=== PATIENT | male | born 1965 | race Caucasian/White ===

== ENCOUNTER 2016-09-10 20:32 | Inpatient (IN) | payer OTHER ==
[2016-09-10 21:14] VITALS: BMI 27.7
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
[2016-09-10] MEDS ORDERED: IBUPROFEN 400 MG TABLET (FP) PO PRN (22:34)
[2016-09-10] MEDS ORDERED: MAG HYDROX/AL HYDROX/SIMETH 30 ML UNIT-DOSE CUP PO PRN (22:34)
[2016-09-10] MEDS ORDERED: guaiFENesin/D-METHORPHAN HB 10 ML UNIT-DOSE CUPS PO PRN (22:34)
[2016-09-10] MEDS ORDERED: MAGNESIUM CITRATE 300 ML BOTTLE PO PRN (22:34)
[2016-09-10] MEDS ORDERED: P-EPHED 60MG/TRIPROLIDI 2.5MG TABLET PO PRN (22:34)
[2016-09-10] MEDS ORDERED: ACETAMINOPHEN 325 MG TABLET (FP) PO PRN (22:34)
[2016-09-10] MEDS ORDERED: diphenhydrAMINE HCL 50 MG CAPSULE PO PRN (22:34)
[2016-09-10] MEDS ORDERED: MENTHOL/PHENOL 1 EACH UD MM PRN (22:34)
[2016-09-10] MEDS ORDERED: chlordiazePOXIDE HCL 25 MG CAPSULE PO ONE (22:34)
[2016-09-10] MEDS ORDERED: LOPERAMIDE HCL 2 MG CAPSULE PO PRN (22:34)
[2016-09-10] MEDS ORDERED: MAGNESIUM HYDROX 2400MG/30ML ORAL SUSPENSION 30 ML CUP PO PRN (22:34)
[2016-09-11] MEDS: chlordiazePOXIDE HCL 25 MG CAPSULE PO SCH ×5 (00:38→22:40)
[2016-09-11 01:09] LABS: URINE APPEARANCE CLEAR; URINE BILIRUBIN NEGATIVE (NEGATIVE); URINE BLOOD NEGATIVE (NEGATIVE); URINE COLOR AMBER; URINE GLUCOSE (UA) NEGATIVE (NEGATIVE); URINE KETONE NEGATIVE (NEGATIVE); URINE LEUK ESTERASE NEGATIVE (NEGATIVE); URINE NITRITE NEGATIVE (NEGATIVE); URINE UROBILINOGEN 4.0 E.U/dl E.U./dl (0.2-1.0)
[2016-09-11 01:12] LABS: URINE PROTEIN 1+ (NEGATIVE)
[2016-09-11 01:14] LABS: URINE BACTERIA RARE /hpf (NONE SEEN); URINE MUCUS RARE; URINE RBC <1 /hpf (0-3)
[2016-09-11] MEDS: chlordiazePOXIDE HCL 25 MG CAPSULE PO PRN ×2 (07:34→14:37)
[2016-09-11] MEDS: hydrOXYzine PAMOATE 50 MG CAPSULE (FP) PO PRN ×2 (07:34→14:37)
[2016-09-11 10:43] LABS: MCHC 33.1 g/dl (32.0-35.9); MEAN CELL VOLUME 90.7 fl (80-96); MEAN PLT VOLUME 9.2 fl (7.5-11.1); PLATELET COUNT 58 K/MM3 (134-434); RDW 16.5 % (11.9-15.9); WHITE BLOOD COUNT 4.9 K/mm3 (4.0-10.0)
[2016-09-11] MEDS: PRENATAL VITAMINS W/ FOLIC ACID TABLET (FP) PO SCH (10:50)
[2016-09-11 10:54] LABS: ALBUMIN 3.2 g/dl (3.4-5.0); ANION GAP 13 (8-16); CALCIUM 8.3 mg/dL (8.5-10.1); CO2 28 mmol/L (21-32); GLUCOSE,RANDOM 87 mg/dL (74-106)
[2016-09-11 10:58] LABS: ALK PHOS 112 U/L (45-117); BILIRUBIN,TOTAL 1.1 mg/dL (0.2-1.0); CREATININE 0.5 mg/dL (0.7-1.3); SGOT/AST 126 U/L (15-37); SGPT/ALT 47 U/L (12-78); TOT PROT 7.7 g/dl (6.4-8.2)
[2016-09-11] MEDS ORDERED: INFLUENZA VACCINE 45 MCG/0.5 ML (MDV 16-17) IM ONE (12:00)
--- NOTE | 2016-09-11 12:16 | PN ---
[facility] CIWA - CIWA Score Nausea/Vomitin Muscle Tremors: 3 Anxiety: 3 Agitation: 2 Paroxysmal Sweats: 1-Minimal Palms Moist Orientation: 0-Oriented Tacttile Disturbances: 1-Very Mild Itch/Numbness Auditory Disturbances: 1-Very Mild Visual Disturbances: 1-Very Mild Sensitivity Headache: 2-Mild CIWA-Ar Total Score: 17 BHS Progress Note (SOAP) Subjective: ALERT,IRRITABLE,ANXIOUS,TREMOR,INTERRUPTED SLEEP Objective: 09/11/16 12:12 Vital Signs Temperature 98.6 F 09/11/16 10:02 Pulse Rate 76 09/11/16 10:02 Respiratory Rate 16 09/11/16 10:02 Blood Pressure 111/69 09/11/16 10:02 O2 Sat by Pulse Oximetry (%) EKG NSR 74/MIN NO CHEST PAIN,NO SOB,NO DIZZINESS Laboratory Last Values WBC 4.9 K/mm3 (4.0-10.0) D 09/11/16 08:00 RBC 4.33 M/mm3 (4.00-5.60) 09/11/16 08:00 Hgb 13.0 GM/dL (11.7-16.9) 09/11/16 08:00 Hct 39.3 % (35.4-49) 09/11/16 08:00 MCV 90.7 fl (80-96) 09/11/16 08:00 MCHC 33.1 g/dl (32.0-35.9) 09/11/16 08:00 RDW 16.5 % (11.9-15.9) H 09/11/16 08:00 Plt Count 58 K/MM3 (134-434) L D 09/11/16 08:00 MPV 9.2 fl (7.5-11.1) 09/11/16 08:00 Sodium 143 mmol/L (136-145) 09/11/16 08:00 Potassium 3.5 mmol/L (3.5-5.1) D 09/11/16 08:00 Chloride 102 mmol/L (98-107) 09/11/16 08:00 Carbon Dioxide 28 mmol/L (21-32) D 09/11/16 08:00 Anion Gap 13 (8-16) 09/11/16 08:00 BUN 12 mg/dL (7-18) D 09/11/16 08:00 Creatinine 0.5 mg/dL (0.7-1.3) L 09/11/16 08:00 Creat Clearance w eGFR > 60 (>60) 09/11/16 08:00 Random Glucose 87 mg/dL (74-106) D 09/11/16 08:00 Calcium 8.3 mg/dL (8.5-10.1) L 09/11/16 08:00 Total Bilirubin 1.1 mg/dL (0.2-1.0) H D 09/11/16 08:00 AST 126 U/L (15-37) H 09/11/16 08:00 ALT 47 U/L (12-78) D 09/11/16 08:00 Alkaline Phosphatase 112 U/L (45-117) D 09/11/16 08:00 Total Protein 7.7 g/dl (6.4-8.2) 09/11/16 08:00 Albumin 3.2 g/dl (3.4-5.0) L 09/11/16 08:00 Urine Color Eva 09/11/16 00:45 Urine Appearance Clear 09/11/16 00:45 Urine pH 7.0 (5.0-8.0) D 09/11/16 00:45 Ur Specific [place] 1.009 (1.001-1.035) 09/11/16 00:45 Urine Protein 1+ (NEGATIVE) H 09/11/16 00:45 Urine Glucose (UA) Negative (NEGATIVE) 09/11/16 00:45 Urine Ketones Negative (NEGATIVE) 09/11/16 00:45 Urine Blood Negative (NEGATIVE) 09/11/16 00:45 Urine Nitrite Negative (NEGATIVE) 09/11/16 00:45 Urine Bilirubin Negative (NEGATIVE) 09/11/16 00:45 Urine Urobilinogen 4.0 e.u/dl E.U./dl (0.2-1.0) 09/11/16 00:45 Ur Leukocyte Esterase Negative (NEGATIVE) 09/11/16 00:45 Urine RBC <1 /hpf (0-3) 09/11/16 00:45 Urine WBC None /hpf (3-5) 09/11/16 00:45 Urine Bacteria Rare /hpf (NONE SEEN) 09/11/16 00:45 Urine Mucus Rare 09/11/16 00:45 Assessment: 09/11/16 12:14 WITHDRAWAL SYMPTOM Plan: CONTINUE DETOX,AST 126,ALT 47,PLATELET COUNT 58K,HISTORY OF CIRRHOSIS OF LIVER, REPEAT CBC,ALT.AST ,INR IN AM,D/C TYLENOL
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
--- NOTE | 2016-09-11 18:25 | EKG ---
Test Reason : Blood Pressure : / mmHG Vent. Rate : 074 BPM Atrial Rate : 074 BPM P-R Int : 184 ms QRS Dur : 146 ms QT Int : 512 ms P-R-T Axes : 039 078 015 degrees QTc Int : 568 ms POOR DATA QUALITY, INTERPRETATION MAY BE ADVERSELY AFFECTED NORMAL SINUS RHYTHM PROLONGED QT ABNORMAL ECG WHEN COMPARED WITH ECG OF 01-APR-2009 22:46, QT HAS LENGTHENED Confirmed by ZIA LACY, DAVONTE ([id number]) on 09/11/2016 6:25:10 PM Referred By: Confirmed By:DAVONTE LIZARRAGA MD
[2016-09-11] MEDS ORDERED: TRIMETHOBENZAMIDE HCL 200MG/2ML INJ IM PRN (18:36)
--- NOTE | 2016-09-11 18:38 | PN ---
S Progress Note Note: PATIENT HAS VOMITING,TO GIVE TIGAN 200 MGS IM Q 8 HRS PRN,CLOSE MONITORING
[2016-09-11] MEDS ORDERED: cloNIDine HCL 0.1 MG TABLET ONE (21:43)
[2016-09-11] MEDS ORDERED: cloNIDine HCL 0.1 MG TABLET PO ONE (21:52)
[2016-09-11] MEDS: THIAMINE HCL 100 MG TABLET (FP) PO SCH (22:40)
[2016-09-12] MEDS: hydrOXYzine PAMOATE 50 MG CAPSULE (FP) PO PRN ×2 (02:25→10:42)
[2016-09-12] MEDS: chlordiazePOXIDE HCL 25 MG CAPSULE PO PRN (02:26)
[2016-09-12] MEDS: chlordiazePOXIDE HCL 25 MG CAPSULE PO SCH ×3 (05:50→17:46)
[2016-09-12 10:01] LABS: MCH 29.8 pg (25.7-33.7); MCHC 33.1 g/dl (32.0-35.9); MEAN PLT VOLUME 9.8 fl (7.5-11.1); PLATELET COUNT 47 K/MM3 (134-434); RDW 16.3 % (11.9-15.9)
[2016-09-12] MEDS: PRENATAL VITAMINS W/ FOLIC ACID TABLET (FP) PO SCH (10:41)
[2016-09-12 10:42] LABS: SGPT/ALT 46 U/L (12-78)
[2016-09-12] MEDS: ATENOLOL 50 MG TABLET (FP) PO SCH (10:42)
[2016-09-12 11:05] LABS: SGOT/AST 112 U/L (15-37)
--- NOTE | 2016-09-12 11:33 | PN ---
B[facility] Progress Note (SOAP) Subjective: ALERT,IRRITABLE,ANXIOUS,INTERRUPTED SLEEP Objective: 09/12/16 11:31 Vital Signs Temperature 98.6 F 09/12/16 10:41 Pulse Rate 96 H 09/12/16 10:41 Respiratory Rate 16 09/12/16 10:41 Blood Pressure 139/83 09/12/16 10:41 O2 Sat by Pulse Oximetry (%) Abnormal Lab Results 09/12/16 09/12/16 07:20 07:20 RDW 16.3 H Plt Count 47 L AST 112 H Assessment: 09/12/16 11:32 WITHDRAWAL SYMPTOM Plan: CONTINUE DETOX
[2016-09-12] MEDS: THIAMINE HCL 100 MG TABLET (FP) PO SCH (22:55)
[2016-09-12] MEDS: chlordiazePOXIDE 5 MG CAPSULE PO SCH (23:22)
[2016-09-13] MEDS: chlordiazePOXIDE 5 MG CAPSULE PO SCH ×3 (05:46→17:38)
[2016-09-13] MEDS: ATENOLOL 50 MG TABLET (FP) PO SCH (10:08)
[2016-09-13] MEDS: PRENATAL VITAMINS W/ FOLIC ACID TABLET (FP) PO SCH (10:08)
--- NOTE | 2016-09-13 11:03 | PN ---
S Progress Note (SOAP) Subjective: ALERT,IRRITABLE,ANXIOUS,PAIN ON URINATION Objective: 09/13/16 11:02 Vital Signs Temperature 97.3 F L 09/13/16 10:15 Pulse Rate 99 H 09/13/16 10:15 Respiratory Rate 18 09/13/16 10:15 Blood Pressure 112/73 09/13/16 10:15 O2 Sat by Pulse Oximetry (%) Assessment: 09/13/16 11:02 WITHDRAWAL SYMPTOM Plan: CONTINUE DETOX,REPEAT UA TODAY,DISCHARGE IN AM
[2016-09-13 14:19] LABS: URINE APPEARANCE CLOUDY; URINE COLOR AMBER; URINE GLUCOSE (UA) NEGATIVE (NEGATIVE); URINE KETONE NEGATIVE (NEGATIVE); URINE LEUK ESTERASE NEGATIVE (NEGATIVE); URINE NITRITE NEGATIVE (NEGATIVE); URINE UROBILINOGEN 2.0 E.U/dl E.U./dl (0.2-1.0)
[2016-09-13 14:20] LABS: URINE BLOOD 1+ (NEGATIVE); URINE PROTEIN 2+ (NEGATIVE)
[2016-09-13 14:28] LABS: URINE HYALINE CAST 132 /lpf; URINE MUCUS MANY; URINE RBC 3 /hpf (0-3); URINE WBC 7 /hpf (3-5)
[2016-09-13] MEDS: chlordiazePOXIDE HCL 10 MG CAPSULE PO SCH (22:24)
[2016-09-13] MEDS: THIAMINE HCL 100 MG TABLET (FP) PO SCH (22:24)
[2016-09-14] MEDS: chlordiazePOXIDE HCL 10 MG CAPSULE PO SCH (06:21)
[2016-09-14 06:47] VITALS: BP 109/70; PULSE 78; TEMP 98.4
--- NOTE | 2016-09-14 08:34 | PN ---
[facility] Progress Note (SOAP) Subjective: alert,no complaint Objective: 09/14/16 08:29 Vital Signs Temperature 98.4 F 09/14/16 06:46 Pulse Rate 78 09/14/16 06:46 Respiratory Rate 18 09/14/16 06:46 Blood Pressure 109/70 09/14/16 06:46 O2 Sat by Pulse Oximetry (%) 09/14/16 08:29 Abnormal Lab Results 09/13/16 11:20 Urine Protein 2+ H Urine Blood 1+ H 09/14/16 08:31 Laboratory Last Values WBC 4.0 K/mm3 (4.0-10.0) 09/12/16 07:20 RBC 4.61 M/mm3 (4.00-5.60) 09/12/16 07:20 Hgb 13.7 GM/dL (11.7-16.9) 09/12/16 07:20 Hct 41.5 % (35.4-49) 09/12/16 07:20 MCV 90.0 fl (80-96) 09/12/16 07:20 MCHC 33.1 g/dl (32.0-35.9) 09/12/16 07:20 RDW 16.3 % (11.9-15.9) H 09/12/16 07:20 Plt Count 47 K/MM3 (134-434) L 09/12/16 07:20 MPV 9.8 fl (7.5-11.1) 09/12/16 07:20 Sodium 143 mmol/L (136-145) 09/11/16 08:00 Potassium 3.5 mmol/L (3.5-5.1) D 09/11/16 08:00 Chloride 102 mmol/L (98-107) 09/11/16 08:00 Carbon Dioxide 28 mmol/L (21-32) D 09/11/16 08:00 Anion Gap 13 (8-16) 09/11/16 08:00 BUN 12 mg/dL (7-18) D 09/11/16 08:00 Creatinine 0.5 mg/dL (0.7-1.3) L 09/11/16 08:00 Creat Clearance w eGFR > 60 (>60) 09/11/16 08:00 POC Glucometer 96 UNITS (()) 09/12/16 16:39 Random Glucose 87 mg/dL (74-106) D 09/11/16 08:00 Calcium 8.3 mg/dL (8.5-10.1) L 09/11/16 08:00 Total Bilirubin 1.1 mg/dL (0.2-1.0) H D 09/11/16 08:00 AST 112 U/L (15-37) H 09/12/16 07:20 ALT 46 U/L (12-78) 09/12/16 07:20 Alkaline Phosphatase 112 U/L (45-117) D 09/11/16 08:00 Total Protein 7.7 g/dl (6.4-8.2) 09/11/16 08:00 Albumin 3.2 g/dl (3.4-5.0) L 09/11/16 08:00 Urine Color Eva 09/13/16 11:20 Urine Appearance Cloudy 09/13/16 11:20 Urine pH 5.0 (5.0-8.0) D 09/13/16 11:20 Ur Specific [place] 1.027 (1.001-1.035) 09/13/16 11:20 Urine Protein 2+ (NEGATIVE) H 09/13/16 11:20 Urine Glucose (UA) Negative (NEGATIVE) 09/13/16 11:20 Urine Ketones Negative (NEGATIVE) 09/13/16 11:20 Urine Blood 1+ (NEGATIVE) H 09/13/16 11:20 Urine Nitrite Negative (NEGATIVE) 09/13/16 11:20 Urine Bilirubin 2.0 (NEGATIVE) 09/13/16 11:20 Urine Urobilinogen 2.0 e.u/dl E.U./dl (0.2-1.0) 09/13/16 11:20 Ur Leukocyte Esterase Negative (NEGATIVE) 09/13/16 11:20 Urine RBC 3 /hpf (0-3) 09/13/16 11:20 Urine WBC 7 /hpf (3-5) 09/13/16 11:20 Ur Epithelial Cells Rare /hpf (FEW) 09/13/16 11:20 Urine Bacteria Rare /hpf (NONE SEEN) 09/11/16 00:45 Hyaline Casts 132 /lpf 09/13/16 11:20 Urine Mucus Many 09/13/16 11:20 RPR Titer Nonreactive (NONREACTIVE) 09/11/16 08:00 Assessment: 09/14/16 08:31 detox completed,no withdrawal symptom 09/14/16 08:32 discharge today,advise patient to see her pmd dr Baeza for evaluation upon discharge concerning abnormal urinalysis and elevation of ast 09/14/16 08:35 Plan: discharge,follow up with after care program as arrangement and pmd for medical problem
--- NOTE | 2016-09-14 08:43 | DS ---
[facility] Detox Discharge Summary Admission Date: 09/10/16 Discharge Date: 09/14/16 - History Present History: Alcohol Dependence Additional Comments: follow up with after care program as arrangement and pmd for medical problem,he will see his PMD dr Baeza upon discharge for elevation of ast,abnormal urinalysis with casts and trace of blood in the urine, he understand and will see his pmd upon discharge Pertinent Past History: cirrhosis of liver hypertension - Physical Exam Results Vital Signs: Vital Signs Temperature 98.4 F 09/14/16 06:46 Pulse Rate 78 09/14/16 06:46 Respiratory Rate 18 09/14/16 06:46 Blood Pressure 109/70 09/14/16 06:46 O2 Sat by Pulse Oximetry (%) Pertinent Admission Physical Exam Findings: withdrawal symptom - Treatment Hospital Course: Detox Protocol Followed, Detoxed Safely, Responded well, Discharged Condition Good Patient has Accepted a Rehab Referral to: declined - Medication Discharge Medications: Ambulatory Orders Atenolol [Tenormin -] 50 mg PO DAILY #30 tablet 05/20/15 Sulfacetamide Sodium 10% [Bleph-10 Ophthalmic Solution -] 1 drop OU QID #0 drops 05/20/15 Multivitamins 1 tab PO DAILY 09/11/16 - Diagnosis (1) Alcohol dependence with uncomplicated withdrawal Current Visit: Yes Status: Acute (2) Cirrhosis of liver Current Visit: Yes Status: Chronic Qualifiers: Hepatic cirrhosis type: alcoholic cirrhosis Ascites presence: without ascites Qualified Code(s): K70.30 - Alcoholic cirrhosis of liver without ascites (3) HTN (hypertension) Current Visit: Yes Status: Chronic Qualifiers: Hypertension type: essential hypertension Qualified Code(s): I10 - Essential (primary) hypertension (4) Peripheral neuropathy Current Visit: Yes Status: Chronic - AMA Did Patient Leave Against Medical Advice: No
== END 2016-09-14 09:12 | disposition home or self-care (01) | DRG 775 ==
LOC: YASAS 20:32 → Y6N 21:56
PROVIDERS: ADMIT Internal Medicine; ATTEND Internal Medicine
PROC: HZ2ZZZZ Detoxification Services for Substance Abuse Treatment (ICD-10-PCS; principal; 2016-09-14)
DX: F10.230 Alcohol dependence with withdrawal, uncomplicated (principal); K70.30 Alcoholic cirrhosis of liver without ascites; I10 Essential (primary) hypertension; G62.9 Polyneuropathy, unspecified; Z63.4 Disappearance and death of family member
CPT/HCPCS: 36415; 80053; 81003; 81015; 84450; 84460; 85027; 86593; 93005; 93010

== ENCOUNTER 2017-04-13 08:37 | Inpatient (IN) | payer OTHER ==
[2017-04-13 09:36] VITALS: BMI 26.3
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
[2017-04-13] MEDS ORDERED: P-EPHED 60MG/TRIPROLIDI 2.5MG TABLET PO PRN (11:58)
[2017-04-13] MEDS ORDERED: chlordiazePOXIDE HCL 25 MG CAPSULE PO PRN (11:58)
[2017-04-13] MEDS ORDERED: ACETAMINOPHEN 325 MG TABLET (FP) PO PRN (11:58)
[2017-04-13] MEDS ORDERED: hydrOXYzine PAMOATE 50 MG CAPSULE (FP) PO PRN (11:58)
[2017-04-13] MEDS ORDERED: MAGNESIUM CITRATE 300 ML BOTTLE PO PRN (11:58)
[2017-04-13] MEDS ORDERED: guaiFENesin/D-METHORPHAN HB 10 ML UNIT-DOSE CUPS PO PRN (11:58)
[2017-04-13] MEDS ORDERED: MAG HYDROX/AL HYDROX/SIMETH 30 ML UNIT-DOSE CUP PO PRN (11:58)
[2017-04-13] MEDS ORDERED: LOPERAMIDE HCL 2 MG CAPSULE PO PRN (11:58)
[2017-04-13] MEDS ORDERED: IBUPROFEN 400 MG TABLET (FP) PO PRN (11:58)
[2017-04-13] MEDS ORDERED: MAGNESIUM HYDROX 2400MG/30ML ORAL SUSPENSION 30 ML CUP PO PRN (11:58)
[2017-04-13] MEDS ORDERED: MENTHOL/PHENOL 1 EACH UD MM PRN (11:58)
[2017-04-13] MEDS ORDERED: chlordiazePOXIDE HCL 25 MG CAPSULE PO ONE (13:00)
[2017-04-13] MEDS: chlordiazePOXIDE HCL 25 MG CAPSULE PO SCH ×2 (17:00→22:18)
[2017-04-13] MEDS: ERYTHROMYCIN 0.5% OPHTHALMIC OINTMENT 3.5 GM TUBE OU SCH (17:00)
[2017-04-13 17:34] LABS: MCH 31.2 pg (25.7-33.7); MCHC 34.2 g/dl (32.0-35.9); MEAN CELL VOLUME 91.3 fl (80-96); MEAN PLT VOLUME 9.8 fl (7.5-11.1); RDW 15.8 % (11.9-15.9); WHITE BLOOD COUNT 4.3 K/mm3 (4.0-10.0)
[2017-04-13 17:36] LABS: PLATELET COUNT 77 K/MM3 (134-434)
[2017-04-13 17:41] LABS: URINE APPEARANCE CLEAR; URINE BILIRUBIN NEGATIVE (NEGATIVE); URINE BLOOD 1+ (NEGATIVE); URINE COLOR AMBER; URINE GLUCOSE (UA) NEGATIVE (NEGATIVE); URINE KETONE 1+ (NEGATIVE); URINE LEUK ESTERASE NEGATIVE (NEGATIVE); URINE NITRITE NEGATIVE (NEGATIVE); URINE UROBILINOGEN 4.0 E.U/dl mg/dL (0.2-1.0)
[2017-04-13 17:44] LABS: URINE PROTEIN 2+ (NEGATIVE)
[2017-04-13 17:47] LABS: URINE HYALINE CAST 4 /lpf; URINE MUCUS MANY; URINE RBC 2 /hpf (0-3); URINE WBC 1 /hpf (3-5)
[2017-04-13 18:58] LABS: ALBUMIN 4.1 g/dl (3.4-5.0); ANION GAP 12 (8-16); CALCIUM 8.6 mg/dL (8.5-10.1); CO2 32 mmol/L (21-32); GLUCOSE,RANDOM 90 mg/dL (74-106); SGOT/AST 86 U/L (15-37); SGPT/ALT 47 U/L (12-78)
[2017-04-13 19:01] LABS: ALK PHOS 93 U/L (45-117); BILIRUBIN,TOTAL 1.6 mg/dL (0.2-1.0); CREATININE 0.6 mg/dL (0.7-1.3); TOT PROT 8.3 g/dl (6.4-8.2)
[2017-04-13] MEDS: diphenhydrAMINE HCL 50 MG CAPSULE PO PRN (22:18)
[2017-04-13] MEDS: THIAMINE HCL 100 MG TABLET (FP) PO SCH (22:18)
[2017-04-14] MEDS: chlordiazePOXIDE HCL 25 MG CAPSULE PO SCH ×4 (05:31→22:16)
[2017-04-14] MEDS: PRENATAL VITAMINS W/ FOLIC ACID TABLET (FP) PO SCH (10:51)
[2017-04-14] MEDS: ERYTHROMYCIN 0.5% OPHTHALMIC OINTMENT 3.5 GM TUBE OU SCH (10:51)
[2017-04-14] MEDS: ATENOLOL 50 MG TABLET (FP) PO SCH (11:49)
--- NOTE | 2017-04-14 12:30 | EKG ---
Test Reason : Blood Pressure : / mmHG Vent. Rate : 073 BPM Atrial Rate : 073 BPM P-R Int : 152 ms QRS Dur : 082 ms QT Int : 454 ms P-R-T Axes : 042 079 042 degrees QTc Int : 500 ms NORMAL SINUS RHYTHM PROLONGED QT ABNORMAL ECG WHEN COMPARED WITH ECG OF 11-SEP-2016 00:58, NON-SPECIFIC CHANGE IN ST SEGMENT IN ANTERIOR LEADS T WAVE INVERSION NO LONGER EVIDENT IN ANTERIOR LEADS QT HAS SHORTENED Confirmed by DELVIS CHARLES MD ([id number]) on 04/14/2017 12:30:08 PM Referred By: Fam Tipton Confirmed By:DELVIS CHARLES MD
--- NOTE | 2017-04-14 12:58 | PN ---
S CIWA - CIWA Score Nausea/Vomitin-No Nausea/No Vomiting Muscle Tremors: 4-Moderate,w/Arms Extend Anxiety: 3 Agitation: 4-Moderately Restless Paroxysmal Sweats: 3 Orientation: 0-Oriented Tacttile Disturbances: 0-None Auditory Disturbances: 0-None Visual Disturbances: 0-None Headache: 0-None Present CIWA-Ar Total Score: 14 BHS Progress Note (SOAP) Subjective: sweats shakes interrupted sleep body aches Objective: 04/14/17 12:57 Vital Signs Temperature 98.2 F 04/14/17 10:04 Pulse Rate 86 04/14/17 10:04 Respiratory Rate 18 04/14/17 10:04 Blood Pressure 126/86 04/14/17 10:04 O2 Sat by Pulse Oximetry (%) Laboratory Tests 04/13/17 04/13/17 04/13/17 12:00 13:00 13:00 WBC 4.3 RBC 4.40 Hgb 13.7 Hct 40.1 MCV 91.3 MCH 31.2 MCHC 34.2 RDW 15.8 Plt Count 77 L D MPV 9.8 Sodium 142 Potassium 3.9 Chloride 98 Carbon Dioxide 32 Anion Gap 12 BUN 12 Creatinine 0.6 L Creat Clearance w eGFR > 60 Random Glucose 90 Calcium 8.6 Total Bilirubin 1.6 H D AST 86 H D ALT 47 Alkaline Phosphatase 93 Total Protein 8.3 H Albumin 4.1 D Urine Color Eva Urine Appearance Clear Urine pH 6.0 Ur Specific [place] 1.025 Urine Protein 2+ H Urine Glucose (UA) Negative Urine Ketones 1+ H Urine Blood 1+ H Urine Nitrite Negative Urine Bilirubin Negative Urine Urobilinogen 4.0 e.u/dl Ur Leukocyte Esterase Negative Urine RBC 2 Urine WBC 1 Ur Epithelial Cells Rare Hyaline Casts 4 Urine Mucus Many RPR Titer 04/13/17 13:00 WBC RBC Hgb Hct MCV MCH MCHC RDW Plt Count MPV Sodium Potassium Chloride Carbon Dioxide Anion Gap BUN Creatinine Creat Clearance w eGFR Random Glucose Calcium Total Bilirubin AST ALT Alkaline Phosphatase Total Protein Albumin Urine Color Urine Appearance Urine pH Ur Specific [place] Urine Protein Urine Glucose (UA) Urine Ketones Urine Blood Urine Nitrite Urine Bilirubin Urine Urobilinogen Ur Leukocyte Esterase Urine RBC Urine WBC Ur Epithelial Cells Hyaline Casts Urine Mucus RPR Titer Nonreactive repeated u/a pending AAOx3 no acute distress Assessment: 04/14/17 12:58 withdrawal sx Plan: continue detox increase fluids
[2017-04-14] MEDS: THIAMINE HCL 100 MG TABLET (FP) PO SCH (22:16)
[2017-04-14] MEDS: diphenhydrAMINE HCL 50 MG CAPSULE PO PRN (22:17)
[2017-04-15] MEDS: chlordiazePOXIDE HCL 25 MG CAPSULE PO SCH ×2 (06:02→11:15)
--- NOTE | 2017-04-15 10:37 | PN ---
S CIWA - CIWA Score Nausea/Vomitin Muscle Tremors: 3 Anxiety: 3 Agitation: 2 Paroxysmal Sweats: 1-Minimal Palms Moist Orientation: 0-Oriented Tacttile Disturbances: 1-Very Mild Itch/Numbness Auditory Disturbances: 1-Very Mild Visual Disturbances: 0-None Headache: 2-Mild CIWA-Ar Total Score: 16 BHS Progress Note (SOAP) Subjective: ALERT,IRRITABLE,ANXIOUS,INTERRUPTED SLEEP,TREMOR Objective: 04/15/17 10:35 04/15/17 10:35 Vital Signs Temperature 97.2 F L 04/15/17 09:58 Pulse Rate 88 04/15/17 09:58 Respiratory Rate 18 04/15/17 09:58 Blood Pressure 132/96 04/15/17 09:58 O2 Sat by Pulse Oximetry (%) Laboratory Last Values WBC 4.3 K/mm3 (4.0-10.0) 04/13/17 13:00 RBC 4.40 M/mm3 (4.00-5.60) 04/13/17 13:00 Hgb 13.7 GM/dL (11.7-16.9) 04/13/17 13:00 Hct 40.1 % (35.4-49) 04/13/17 13:00 MCV 91.3 fl (80-96) 04/13/17 13:00 MCH 31.2 pg (25.7-33.7) 04/13/17 13:00 MCHC 34.2 g/dl (32.0-35.9) 04/13/17 13:00 RDW 15.8 % (11.9-15.9) 04/13/17 13:00 Plt Count 77 K/MM3 (134-434) L D 04/13/17 13:00 MPV 9.8 fl (7.5-11.1) 04/13/17 13:00 Sodium 142 mmol/L (136-145) 04/13/17 13:00 Potassium 3.9 mmol/L (3.5-5.1) 04/13/17 13:00 Chloride 98 mmol/L (98-107) 04/13/17 13:00 Carbon Dioxide 32 mmol/L (21-32) 04/13/17 13:00 Anion Gap 12 (8-16) 04/13/17 13:00 BUN 12 mg/dL (7-18) 04/13/17 13:00 Creatinine 0.6 mg/dL (0.7-1.3) L 04/13/17 13:00 Creat Clearance w eGFR > 60 (>60) 04/13/17 13:00 Random Glucose 90 mg/dL (74-106) 04/13/17 13:00 Calcium 8.6 mg/dL (8.5-10.1) 04/13/17 13:00 Total Bilirubin 1.6 mg/dL (0.2-1.0) H D 04/13/17 13:00 AST 86 U/L (15-37) H D 04/13/17 13:00 ALT 47 U/L (12-78) 04/13/17 13:00 Alkaline Phosphatase 93 U/L (45-117) 04/13/17 13:00 Total Protein 8.3 g/dl (6.4-8.2) H 04/13/17 13:00 Albumin 4.1 g/dl (3.4-5.0) D 04/13/17 13:00 Urine Color Eva 04/13/17 12:00 Urine Appearance Clear 04/13/17 12:00 Urine pH 6.0 (5.0-8.0) 04/13/17 12:00 Ur Specific [place] 1.025 (1.005-1.025) 04/13/17 12:00 Urine Protein 2+ (NEGATIVE) H 04/13/17 12:00 Urine Glucose (UA) Negative (NEGATIVE) 04/13/17 12:00 Urine Ketones 1+ (NEGATIVE) H 04/13/17 12:00 Urine Blood 1+ (NEGATIVE) H 04/13/17 12:00 Urine Nitrite Negative (NEGATIVE) 04/13/17 12:00 Urine Bilirubin Negative (NEGATIVE) 04/13/17 12:00 Urine Urobilinogen 4.0 e.u/dl mg/dL (0.2-1.0) 04/13/17 12:00 Ur Leukocyte Esterase Negative (NEGATIVE) 04/13/17 12:00 Urine RBC 2 /hpf (0-3) 04/13/17 12:00 Urine WBC 1 /hpf (3-5) 04/13/17 12:00 Ur Epithelial Cells Rare /hpf (FEW) 04/13/17 12:00 Hyaline Casts 4 /lpf 04/13/17 12:00 Urine Mucus Many 04/13/17 12:00 RPR Titer Nonreactive (NONREACTIVE) 04/13/17 13:00 Assessment: 04/15/17 10:36 WITHDRAWAL SYMPTOM Plan: CONTINUE DETOX,REPEAT CBC,CMP,INR IN AM
[2017-04-15] MEDS: PRENATAL VITAMINS W/ FOLIC ACID TABLET (FP) PO SCH (11:15)
[2017-04-15] MEDS: ATENOLOL 50 MG TABLET (FP) PO SCH (11:15)
[2017-04-15] MEDS: ERYTHROMYCIN 0.5% OPHTHALMIC OINTMENT 3.5 GM TUBE OU SCH (11:15)
[2017-04-15] MEDS: RANITIDINE HCL 150 MG TABLET (FP) PO SCH ×2 (12:27→22:10)
[2017-04-15 13:37] LABS: URINE APPEARANCE CLEAR; URINE BILIRUBIN NEGATIVE (NEGATIVE); URINE BLOOD NEGATIVE (NEGATIVE); URINE COLOR AMBER; URINE GLUCOSE (UA) NEGATIVE (NEGATIVE); URINE KETONE TRACE (NEGATIVE); URINE LEUK ESTERASE NEGATIVE (NEGATIVE); URINE NITRITE NEGATIVE (NEGATIVE); URINE PROTEIN 1+ (NEGATIVE); URINE UROBILINOGEN 4.0 E.U/dl mg/dL (0.2-1.0)
[2017-04-15 13:40] LABS: URINE MUCUS RARE; URINE RBC 6 /hpf (0-3); URINE WBC <1 /hpf (3-5)
[2017-04-15] MEDS: chlordiazePOXIDE 5 MG CAPSULE PO SCH ×2 (17:30→22:10)
[2017-04-15] MEDS: diphenhydrAMINE HCL 50 MG CAPSULE PO PRN (22:11)
[2017-04-15] MEDS: THIAMINE HCL 100 MG TABLET (FP) PO SCH (22:11)
[2017-04-16] MEDS: diphenhydrAMINE HCL 50 MG CAPSULE PO PRN (00:26)
[2017-04-16] MEDS: chlordiazePOXIDE 5 MG CAPSULE PO SCH ×2 (05:31→10:41)
[2017-04-16] MEDS: RANITIDINE HCL 150 MG TABLET (FP) PO SCH (10:41)
[2017-04-16] MEDS: PRENATAL VITAMINS W/ FOLIC ACID TABLET (FP) PO SCH (10:41)
[2017-04-16] MEDS: ATENOLOL 50 MG TABLET (FP) PO SCH (10:41)
[2017-04-16] MEDS: ERYTHROMYCIN 0.5% OPHTHALMIC OINTMENT 3.5 GM TUBE OU SCH (10:42)
[2017-04-16 11:02] LABS: BASOPHIL 0.8 % (0-2.0); EOSINOPHIL 2.3 % (0-4.5); MCH 30.4 pg (25.7-33.7); MCHC 33.1 g/dl (32.0-35.9); MEAN CELL VOLUME 91.6 fl (80-96); MEAN PLT VOLUME 9.6 fl (7.5-11.1); NEUTROPHILS 50.9 % (42.8-82.8); PLATELET COUNT 65 K/MM3 (134-434); RDW 15.6 % (11.9-15.9); WHITE BLOOD COUNT 6.3 K/mm3 (4.0-10.0)
[2017-04-16 11:04] LABS: ANION GAP 12 (8-16); CO2 27 mmol/L (21-32); CREATININE 0.8 mg/dL (0.7-1.3); GLUCOSE,RANDOM 123 mg/dL (74-106); SGOT/AST 67 U/L (15-37)
[2017-04-16 11:07] LABS: ALK PHOS 153 U/L (45-117); BILIRUBIN,TOTAL 2.6 mg/dL (0.2-1.0); SGPT/ALT 47 U/L (12-78); TOT PROT 8.5 g/dl (6.4-8.2)
[2017-04-16 11:16] LABS: INR 1.43 (0.82-1.09); PROTHROMBIN TIME (PATIENT) 15.9 SEC (9.98-11.88)
--- NOTE | 2017-04-16 11:19 | PN ---
BHS Progress Note (SOAP) Subjective: Mild shakes and sweats Objective: 04/16/17 11:18 Vital Signs - 8 hr 04/16/17 04/16/17 06:41 10:00 Temperature 97.3 F L 98.4 F Pulse Rate 78 90 Respiratory 18 18 Rate Blood Pressure 123/71 117/84 Laboratory Last Values WBC 6.3 K/mm3 (4.0-10.0) D 04/16/17 07:50 RBC 4.77 M/mm3 (4.00-5.60) 04/16/17 07:50 Hgb 14.5 GM/dL (11.7-16.9) 04/16/17 07:50 Hct 43.7 % (35.4-49) 04/16/17 07:50 MCV 91.6 fl (80-96) 04/16/17 07:50 MCH 30.4 pg (25.7-33.7) 04/16/17 07:50 MCHC 33.1 g/dl (32.0-35.9) 04/16/17 07:50 RDW 15.6 % (11.9-15.9) 04/16/17 07:50 Plt Count 65 K/MM3 (134-434) L 04/16/17 07:50 MPV 9.6 fl (7.5-11.1) 04/16/17 07:50 Neutrophils % 50.9 % (42.8-82.8) D 04/16/17 07:50 Lymphocytes % 30.8 % (8-40) D 04/16/17 07:50 Monocytes % 15.2 % (3.8-10.2) H 04/16/17 07:50 Eosinophils % 2.3 % (0-4.5) 04/16/17 07:50 Basophils % 0.8 % (0-2.0) 04/16/17 07:50 Sodium 139 mmol/L (136-145) 04/16/17 07:50 Potassium 3.7 mmol/L (3.5-5.1) 04/16/17 07:50 Chloride 100 mmol/L (98-107) 04/16/17 07:50 Carbon Dioxide 27 mmol/L (21-32) 04/16/17 07:50 Anion Gap 12 (8-16) 04/16/17 07:50 BUN 16 mg/dL (7-18) D 04/16/17 07:50 Creatinine 0.8 mg/dL (0.7-1.3) D 04/16/17 07:50 Creat Clearance w eGFR > 60 (>60) 04/16/17 07:50 Random Glucose 123 mg/dL (74-106) H D 04/16/17 07:50 Calcium 10.0 mg/dL (8.5-10.1) 04/16/17 07:50 Total Bilirubin 2.6 mg/dL (0.2-1.0) H D 04/16/17 07:50 AST 67 U/L (15-37) H D 04/16/17 07:50 ALT 47 U/L (12-78) 04/16/17 07:50 Alkaline Phosphatase 153 U/L (45-117) H D 04/16/17 07:50 Total Protein 8.5 g/dl (6.4-8.2) H 04/16/17 07:50 Albumin 4.0 g/dl (3.4-5.0) 04/16/17 07:50 Urine Color Eva 04/15/17 10:20 Urine Appearance Clear 04/15/17 10:20 Urine pH 7.0 (5.0-8.0) 04/15/17 10:20 Ur Specific [place] 1.015 (1.005-1.025) 04/15/17 10:20 Urine Protein 1+ (NEGATIVE) H 04/15/17 10:20 Urine Glucose (UA) Negative (NEGATIVE) 04/15/17 10:20 Urine Ketones Trace (NEGATIVE) H 04/15/17 10:20 Urine Blood Negative (NEGATIVE) 04/15/17 10:20 Urine Nitrite Negative (NEGATIVE) 04/15/17 10:20 Urine Bilirubin Negative (NEGATIVE) 04/15/17 10:20 Urine Urobilinogen 4.0 e.u/dl mg/dL (0.2-1.0) 04/15/17 10:20 Ur Leukocyte Esterase Negative (NEGATIVE) 04/15/17 10:20 Urine RBC 6 /hpf (0-3) 04/15/17 10:20 Urine WBC <1 /hpf (3-5) 04/15/17 10:20 Ur Epithelial Cells Rare /hpf (FEW) 04/13/17 12:00 Hyaline Casts 4 /lpf 04/13/17 12:00 Urine Mucus Rare 04/15/17 10:20 RPR Titer Nonreactive (NONREACTIVE) 04/13/17 13:00 labs noted Assessment: 04/16/17 11:18 withdrawal sx Plan: continue detox
[2017-04-16 14:41] VITALS: BP 114/74; PULSE 98; TEMP 97.7
[2017-04-16] MEDS ORDERED: chlordiazePOXIDE HCL 10 MG CAPSULE PO SCH (17:00)
--- NOTE | 2017-04-16 19:47 | DS ---
[facility] Detox Discharge Summary Admission Date: 04/13/17 Discharge Date: 04/16/17 - History Present History: Alcohol Dependence Pertinent Past History: GERD, peripheral neuropathy, cirrhosis of the liver, HTN - Physical Exam Results Vital Signs: Vital Signs Temperature 97.7 F 04/16/17 14:40 Pulse Rate 98 H 04/16/17 14:40 Respiratory Rate 16 04/16/17 14:40 Blood Pressure 114/74 04/16/17 14:40 O2 Sat by Pulse Oximetry (%) Pertinent Admission Physical Exam Findings: withdrawal sx Laboratory Last Values WBC 6.3 K/mm3 (4.0-10.0) D 04/16/17 07:50 RBC 4.77 M/mm3 (4.00-5.60) 04/16/17 07:50 Hgb 14.5 GM/dL (11.7-16.9) 04/16/17 07:50 Hct 43.7 % (35.4-49) 04/16/17 07:50 MCV 91.6 fl (80-96) 04/16/17 07:50 MCH 30.4 pg (25.7-33.7) 04/16/17 07:50 MCHC 33.1 g/dl (32.0-35.9) 04/16/17 07:50 RDW 15.6 % (11.9-15.9) 04/16/17 07:50 Plt Count 65 K/MM3 (134-434) L 04/16/17 07:50 MPV 9.6 fl (7.5-11.1) 04/16/17 07:50 Neutrophils % 50.9 % (42.8-82.8) D 04/16/17 07:50 Lymphocytes % 30.8 % (8-40) D 04/16/17 07:50 Monocytes % 15.2 % (3.8-10.2) H 04/16/17 07:50 Eosinophils % 2.3 % (0-4.5) 04/16/17 07:50 Basophils % 0.8 % (0-2.0) 04/16/17 07:50 INR 1.43 (0.82-1.09) H 04/16/17 07:50 Sodium 139 mmol/L (136-145) 04/16/17 07:50 Potassium 3.7 mmol/L (3.5-5.1) 04/16/17 07:50 Chloride 100 mmol/L (98-107) 04/16/17 07:50 Carbon Dioxide 27 mmol/L (21-32) 04/16/17 07:50 Anion Gap 12 (8-16) 04/16/17 07:50 BUN 16 mg/dL (7-18) D 04/16/17 07:50 Creatinine 0.8 mg/dL (0.7-1.3) D 04/16/17 07:50 Creat Clearance w eGFR > 60 (>60) 04/16/17 07:50 Random Glucose 123 mg/dL (74-106) H D 04/16/17 07:50 Calcium 10.0 mg/dL (8.5-10.1) 04/16/17 07:50 Total Bilirubin 2.6 mg/dL (0.2-1.0) H D 04/16/17 07:50 AST 67 U/L (15-37) H D 04/16/17 07:50 ALT 47 U/L (12-78) 04/16/17 07:50 Alkaline Phosphatase 153 U/L (45-117) H D 04/16/17 07:50 Total Protein 8.5 g/dl (6.4-8.2) H 04/16/17 07:50 Albumin 4.0 g/dl (3.4-5.0) 04/16/17 07:50 Urine Color Eva 04/15/17 10:20 Urine Appearance Clear 04/15/17 10:20 Urine pH 7.0 (5.0-8.0) 04/15/17 10:20 Ur Specific [place] 1.015 (1.005-1.025) 04/15/17 10:20 Urine Protein 1+ (NEGATIVE) H 04/15/17 10:20 Urine Glucose (UA) Negative (NEGATIVE) 04/15/17 10:20 Urine Ketones Trace (NEGATIVE) H 04/15/17 10:20 Urine Blood Negative (NEGATIVE) 04/15/17 10:20 Urine Nitrite Negative (NEGATIVE) 04/15/17 10:20 Urine Bilirubin Negative (NEGATIVE) 04/15/17 10:20 Urine Urobilinogen 4.0 e.u/dl mg/dL (0.2-1.0) 04/15/17 10:20 Ur Leukocyte Esterase Negative (NEGATIVE) 04/15/17 10:20 Urine RBC 6 /hpf (0-3) 04/15/17 10:20 Urine WBC <1 /hpf (3-5) 04/15/17 10:20 Ur Epithelial Cells Rare /hpf (FEW) 04/13/17 12:00 Hyaline Casts 4 /lpf 04/13/17 12:00 Urine Mucus Rare 04/15/17 10:20 RPR Titer Nonreactive (NONREACTIVE) 04/13/17 13:00 labs noted - Medication Discharge Medications: Ambulatory Orders Atenolol [Tenormin -] 50 mg PO DAILY 04/13/17 Multivitamins [Tab-A-Vit -] 1 tab PO DAILY 04/13/17 - Diagnosis (1) Alcohol dependence with uncomplicated withdrawal Status: Acute (2) GERD (gastroesophageal reflux disease) Status: Chronic Qualifiers: Esophagitis presence: without esophagitis Qualified Code(s): K21.9 - Gastro-esophageal reflux disease without esophagitis (3) HTN (hypertension) Status: Chronic Qualifiers: Hypertension type: essential hypertension Qualified Code(s): I10 - Essential (primary) hypertension (4) Peripheral neuropathy Status: Chronic Qualifiers: Peripheral neuropathy type: polyneuropathy, unspecified Qualified Code(s): G62.9 - Polyneuropathy, unspecified (5) Delusional disorder Status: Suspected - AMA Did Patient Leave Against Medical Advice: Yes
== END 2017-04-16 16:10 | disposition left against medical advice (07) | DRG 770 ==
LOC: YASAS 08:37 → Y6N 11:53
PROVIDERS: ADMIT Internal Medicine Addiction Medicine; ATTEND Internal Medicine Addiction Medicine
PROC: HZ2ZZZZ Detoxification Services for Substance Abuse Treatment (ICD-10-PCS; principal; 2017-04-13)
DX: F10.230 Alcohol dependence with withdrawal, uncomplicated (principal); F22 Delusional disorders; K21.9 Gastro-esophageal reflux disease without esophagitis; I10 Essential (primary) hypertension; G62.9 Polyneuropathy, unspecified; K74.60 Unspecified cirrhosis of liver; H44.003 Unspecified purulent endophthalmitis, bilateral; Z91.041 Radiographic dye allergy status; Z87.891 Personal history of nicotine dependence
CPT/HCPCS: 36415; 80053; 81003; 81015; 85025; 85027; 85610; 86593; 93005; 93010

== ENCOUNTER 2017-09-05 08:27 | Inpatient (IN) | payer OTHER ==
[2017-09-05 13:40] VITALS: BMI 27.4
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
[2017-09-05] MEDS ORDERED: MENTHOL/PHENOL 1 EACH UD MM PRN (14:00)
[2017-09-05] MEDS ORDERED: MAGNESIUM HYDROX 2400MG/30ML ORAL SUSPENSION 30 ML CUP PO PRN (14:00)
[2017-09-05] MEDS ORDERED: LOPERAMIDE HCL 2 MG CAPSULE PO PRN (14:00)
[2017-09-05] MEDS ORDERED: IBUPROFEN 400 MG TABLET (FP) PO PRN (14:00)
[2017-09-05] MEDS ORDERED: guaiFENesin/D-METHORPHAN HB 10 ML UNIT-DOSE CUPS PO PRN (14:00)
[2017-09-05] MEDS ORDERED: P-EPHED 60MG/TRIPROLIDI 2.5MG TABLET PO PRN (14:00)
[2017-09-05] MEDS ORDERED: MAGNESIUM CITRATE 300 ML BOTTLE PO PRN (14:00)
[2017-09-05] MEDS ORDERED: ACETAMINOPHEN 325 MG TABLET (FP) PO PRN (14:00)
[2017-09-05] MEDS ORDERED: chlordiazePOXIDE HCL 25 MG CAPSULE PO ONE (14:45)
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
[2017-09-05] MEDS: ATENOLOL 50 MG TABLET (FP) PO SCH (15:56)
[2017-09-05] MEDS: ERYTHROMYCIN 0.5% OPHTHALMIC OINTMENT 3.5 GM TUBE OU SCH (15:56)
[2017-09-05] MEDS: chlordiazePOXIDE HCL 25 MG CAPSULE PO SCH ×2 (16:56→22:00)
[2017-09-05 17:06] LABS: URINE APPEARANCE CLEAR; URINE BILIRUBIN NEGATIVE (NEGATIVE); URINE BLOOD NEGATIVE (NEGATIVE); URINE COLOR AMBER; URINE GLUCOSE (UA) NEGATIVE (NEGATIVE); URINE KETONE NEGATIVE (NEGATIVE); URINE LEUK ESTERASE NEGATIVE (NEGATIVE); URINE NITRITE NEGATIVE (NEGATIVE); URINE UROBILINOGEN 4.0 E.U/dl mg/dL (0.2-1.0)
[2017-09-05 17:08] LABS: HEMATOCRIT 39.9 % (35.4-49); MEAN PLT VOLUME 9.7 fl (7.5-11.1); PLATELET COUNT 73 K/MM3 (134-434)
[2017-09-05 17:10] LABS: HEMOGLOBIN 13.3 GM/dL (11.7-16.9); MCH 30.5 pg (25.7-33.7); MCHC 33.4 g/dl (32.0-35.9); MEAN CELL VOLUME 91.2 fl (80-96); RBC 4.38 M/mm3 (4.00-5.60); RDW 14.8 % (11.9-15.9)
[2017-09-05 17:19] LABS: URINE PROTEIN 1+ (NEGATIVE)
[2017-09-05] MEDS: MAG HYDROX/AL HYDROX/SIMETH 30 ML UNIT-DOSE CUP PO PRN (17:20)
[2017-09-05 17:47] LABS: ALBUMIN 3.9 g/dl (3.4-5.0); ALK PHOS 104 U/L (45-117); ANION GAP 8 (8-16); BILIRUBIN,TOTAL 1.4 mg/dL (0.2-1.0); BLOOD UREA NITROGEN 12 mg/dL (7-18); CALCIUM 8.2 mg/dL (8.5-10.1); CHLORIDE 98 mmol/L (98-107); CO2 36 mmol/L (21-32); CREATININE 0.6 mg/dL (0.7-1.3); GLUCOSE,RANDOM 110 mg/dL (74-106); POTASSIUM 3.3 mmol/L (3.5-5.1); SGOT/AST 117 U/L (15-37); SGPT/ALT 71 U/L (12-78); SODIUM 142 mmol/L (136-145); TOT PROT 8.1 g/dl (6.4-8.2)
[2017-09-05 19:12] LABS: URINE HYALINE CAST 11 /lpf; URINE MUCUS MANY
[2017-09-05] MEDS: chlordiazePOXIDE HCL 25 MG CAPSULE PO PRN (19:43)
[2017-09-05] MEDS: THIAMINE HCL 100 MG TABLET (FP) PO SCH (22:00)
[2017-09-06] MEDS: chlordiazePOXIDE HCL 25 MG CAPSULE PO SCH ×4 (05:47→22:07)
[2017-09-06] MEDS ORDERED: POTASSIUM CHLORIDE TABS 20 MEQ TABLET.ER (FP) PO ONE (06:44)
[2017-09-06] MEDS ORDERED: ONDANSETRON *ODT* 4 MG TABLET SL ONE (09:28)
[2017-09-06] MEDS ORDERED: ONDANSETRON *ODT* 4 MG TABLET SL PRN (09:29)
--- NOTE | 2017-09-06 09:31 | PN ---
S CIWA - CIWA Score Nausea/Vomitin-Int. Nausea w/Dry Heave Muscle Tremors: 3 Anxiety: 3 Agitation: 3 Paroxysmal Sweats: 3 Orientation: 0-Oriented Tacttile Disturbances: 1-Very Mild Itch/Numbness Auditory Disturbances: 0-None Visual Disturbances: 0-None Headache: 1-Very Mild CIWA-Ar Total Score: 18 S Progress Note (SOAP) Subjective: nausea, sour stomach, anxiety, tremors, interrupted sleep, Objective: 09/06/17 09:30 Vital Signs - 24 hr 09/05/17 09/05/17 09/05/17 13:36 15:25 17:50 Temperature 97.1 F L 98.2 F 98.2 F Pulse Rate 64 85 80 Respiratory 20 18 18 Rate Blood Pressure 137/82 138/87 119/70 09/05/17 09/06/17 09/06/17 21:50 03:30 06:24 Temperature 99.1 F 98.1 F Pulse Rate 77 68 Respiratory 18 18 16 Rate Blood Pressure 122/74 122/75 Laboratory Tests 09/05/17 09/05/17 09/05/17 14:00 14:00 15:00 WBC 4.0 D RBC 4.38 Hgb 13.3 Hct 39.9 MCV 91.2 MCH 30.5 MCHC 33.4 RDW 14.8 Plt Count 73 L MPV 9.7 Sodium 142 Potassium 3.3 L Chloride 98 Carbon Dioxide 36 H D Anion Gap 8 BUN 12 D Creatinine 0.6 L D Creat Clearance w eGFR > 60 Random Glucose 110 H Calcium 8.2 L Total Bilirubin 1.4 H D AST 117 H D ALT 71 D Alkaline Phosphatase 104 D Total Protein 8.1 Albumin 3.9 Urine Color Eva Urine Appearance Clear Urine pH 6.0 Ur Specific [place] 1.019 Urine Protein 1+ H Urine Glucose (UA) Negative Urine Ketones Negative Urine Blood Negative Urine Nitrite Negative Urine Bilirubin Negative Urine Urobilinogen 4.0 e.u/dl Ur Leukocyte Esterase Negative Urine WBC (Auto) 4 Urine RBC (Auto) None Hyaline Casts 11 Urine Mucus Many hypokalemia Assessment: 09/06/17 09:30 withdrawal sx, cont detox, nausea zofran and rpotonix ordered, low k - supplement, fluids, encourage ambualtion
[2017-09-06] MEDS: PRENATAL VITAMINS W/ FOLIC ACID TABLET (FP) PO SCH (10:34)
[2017-09-06] MEDS: ATENOLOL 50 MG TABLET (FP) PO SCH (10:34)
[2017-09-06] MEDS: POTASSIUM CHLORIDE TABS 20 MEQ TABLET.ER (FP) PO SCH ×2 (10:34→22:07)
[2017-09-06] MEDS: PANTOPRAZOLE 40 MG TABLET (FP) PO SCH (10:35)
[2017-09-06] MEDS: ERYTHROMYCIN 0.5% OPHTHALMIC OINTMENT 3.5 GM TUBE OU SCH (10:35)
[2017-09-06] MEDS: chlordiazePOXIDE HCL 25 MG CAPSULE PO PRN (14:00)
--- NOTE | 2017-09-06 14:10 | EKG ---
Test Reason : Blood Pressure : / mmHG Vent. Rate : 073 BPM Atrial Rate : 073 BPM P-R Int : 136 ms QRS Dur : 086 ms QT Int : 430 ms P-R-T Axes : 041 072 045 degrees QTc Int : 473 ms NORMAL SINUS RHYTHM NORMAL ECG WHEN COMPARED WITH ECG OF 13-APR-2017 12:03, NO SIGNIFICANT CHANGE WAS FOUND Confirmed by MD Soler Edward ([id number]) on 09/06/2017 2:10:22 PM Referred By: Confirmed By:Micheal Soler MD
[2017-09-06] MEDS: THIAMINE HCL 100 MG TABLET (FP) PO SCH (22:07)
[2017-09-07] MEDS: chlordiazePOXIDE HCL 25 MG CAPSULE PO SCH ×2 (05:19→10:31)
--- NOTE | 2017-09-07 09:19 | PN ---
S CIWA - CIWA Score Nausea/Vomitin-Mild Nausea/No Vomiting Muscle Tremors: 3 Anxiety: 3 Agitation: 3 Paroxysmal Sweats: 3 Orientation: 0-Oriented Tacttile Disturbances: 0-None Auditory Disturbances: 0-None Visual Disturbances: 0-None Headache: 0-None Present CIWA-Ar Total Score: 13 S Progress Note (SOAP) Subjective: tremor sweat anxiety agitation Objective: 09/07/17 09:18 Vital Signs Temperature 97.5 F L 09/07/17 06:19 Pulse Rate 70 09/07/17 06:19 Respiratory Rate 18 09/07/17 06:19 Blood Pressure 142/89 09/07/17 06:19 O2 Sat by Pulse Oximetry (%) Laboratory Last Values WBC 4.0 K/mm3 (4.0-10.0) D 09/05/17 14:00 RBC 4.38 M/mm3 (4.00-5.60) 09/05/17 14:00 Hgb 13.3 GM/dL (11.7-16.9) 09/05/17 14:00 Hct 39.9 % (35.4-49) 09/05/17 14:00 MCV 91.2 fl (80-96) 09/05/17 14:00 MCH 30.5 pg (25.7-33.7) 09/05/17 14:00 MCHC 33.4 g/dl (32.0-35.9) 09/05/17 14:00 RDW 14.8 % (11.9-15.9) 09/05/17 14:00 Plt Count 73 K/MM3 (134-434) L 09/05/17 14:00 MPV 9.7 fl (7.5-11.1) 09/05/17 14:00 Sodium 142 mmol/L (136-145) 09/05/17 14:00 Potassium 3.3 mmol/L (3.5-5.1) L 09/05/17 14:00 Chloride 98 mmol/L (98-107) 09/05/17 14:00 Carbon Dioxide 36 mmol/L (21-32) H D 09/05/17 14:00 Anion Gap 8 (8-16) 09/05/17 14:00 BUN 12 mg/dL (7-18) D 09/05/17 14:00 Creatinine 0.6 mg/dL (0.7-1.3) L D 09/05/17 14:00 Creat Clearance w eGFR > 60 (>60) 09/05/17 14:00 Random Glucose 110 mg/dL (74-106) H 09/05/17 14:00 Calcium 8.2 mg/dL (8.5-10.1) L 09/05/17 14:00 Total Bilirubin 1.4 mg/dL (0.2-1.0) H D 09/05/17 14:00 AST 117 U/L (15-37) H D 09/05/17 14:00 ALT 71 U/L (12-78) D 09/05/17 14:00 Alkaline Phosphatase 104 U/L (45-117) D 09/05/17 14:00 Total Protein 8.1 g/dl (6.4-8.2) 09/05/17 14:00 Albumin 3.9 g/dl (3.4-5.0) 09/05/17 14:00 Urine Color Eva 09/05/17 15:00 Urine Appearance Clear 09/05/17 15:00 Urine pH 6.0 (5.0-8.0) 09/05/17 15:00 Ur Specific [place] 1.019 (1.001-1.035) 09/05/17 15:00 Urine Protein 1+ (NEGATIVE) H 09/05/17 15:00 Urine Glucose (UA) Negative (NEGATIVE) 09/05/17 15:00 Urine Ketones Negative (NEGATIVE) 09/05/17 15:00 Urine Blood Negative (NEGATIVE) 09/05/17 15:00 Urine Nitrite Negative (NEGATIVE) 09/05/17 15:00 Urine Bilirubin Negative (NEGATIVE) 09/05/17 15:00 Urine Urobilinogen 4.0 e.u/dl mg/dL (0.2-1.0) 09/05/17 15:00 Ur Leukocyte Esterase Negative (NEGATIVE) 09/05/17 15:00 Urine WBC (Auto) 4 /hpf (3-5) 09/05/17 15:00 Urine RBC (Auto) None /hpf (0-3) 09/05/17 15:00 Hyaline Casts 11 /lpf 09/05/17 15:00 Urine Mucus Many 09/05/17 15:00 RPR Titer Nonreactive (NONREACTIVE) 09/05/17 14:00 lab noted Assessment: 09/07/17 09:18 withdrawal sx Plan: continue detox
[2017-09-07] MEDS: PRENATAL VITAMINS W/ FOLIC ACID TABLET (FP) PO SCH (10:31)
[2017-09-07] MEDS: POTASSIUM CHLORIDE TABS 20 MEQ TABLET.ER (FP) PO SCH (10:31)
[2017-09-07] MEDS: PANTOPRAZOLE 40 MG TABLET (FP) PO SCH (10:31)
[2017-09-07] MEDS: ATENOLOL 50 MG TABLET (FP) PO SCH (10:31)
[2017-09-07] MEDS: ERYTHROMYCIN 0.5% OPHTHALMIC OINTMENT 3.5 GM TUBE OU SCH (10:32)
[2017-09-07] MEDS: MAG HYDROX/AL HYDROX/SIMETH 30 ML UNIT-DOSE CUP PO PRN (14:08)
[2017-09-07] MEDS: chlordiazePOXIDE HCL 25 MG CAPSULE PO PRN (14:12)
[2017-09-07] MEDS: ARTIFICIAL TEARS (POLYVINYL ALCOHOL 1.4%) OPTH DROPS OU SCH ×2 (14:53→17:43)
[2017-09-07] MEDS ORDERED: chlordiazePOXIDE 5 MG CAPSULE PO SCH (17:00)
[2017-09-07 18:26] VITALS: BP 119/78; PULSE 71; TEMP 98.8
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
--- NOTE | 2017-09-07 19:45 | DS ---
[facility] Detox Discharge Summary Admission Date: 09/05/17 Discharge Date: 09/07/17 - History Present History: Alcohol Dependence Additional Comments: pateint unwilling to stay and compelte detox, counseled regarding fisks of early discharge signing out ama Pertinent Past History: GERD, [id number], depression, insomnia, nicotine dependence, alcohol liber cirrhosis - Physical Exam Results Vital Signs: Vital Signs Temperature 98.8 F 09/07/17 18:25 Pulse Rate 71 09/07/17 18:25 Respiratory Rate 17 09/07/17 18:25 Blood Pressure 119/78 09/07/17 18:25 O2 Sat by Pulse Oximetry (%) Laboratory Tests 09/05/17 09/05/17 09/05/17 14:00 14:00 14:00 WBC 4.0 D RBC 4.38 Hgb 13.3 Hct 39.9 MCV 91.2 MCH 30.5 MCHC 33.4 RDW 14.8 Plt Count 73 L MPV 9.7 Sodium 142 Potassium 3.3 L Chloride 98 Carbon Dioxide 36 H D Anion Gap 8 BUN 12 D Creatinine 0.6 L D Creat Clearance w eGFR > 60 Random Glucose 110 H Calcium 8.2 L Total Bilirubin 1.4 H D AST 117 H D ALT 71 D Alkaline Phosphatase 104 D Total Protein 8.1 Albumin 3.9 Urine Color Urine Appearance Urine pH Ur Specific [place] Urine Protein Urine Glucose (UA) Urine Ketones Urine Blood Urine Nitrite Urine Bilirubin Urine Urobilinogen Ur Leukocyte Esterase Urine WBC (Auto) Urine RBC (Auto) Hyaline Casts Urine Mucus RPR Titer Nonreactive 09/05/17 15:00 WBC RBC Hgb Hct MCV MCH MCHC RDW Plt Count MPV Sodium Potassium Chloride Carbon Dioxide Anion Gap BUN Creatinine Creat Clearance w eGFR Random Glucose Calcium Total Bilirubin AST ALT Alkaline Phosphatase Total Protein Albumin Urine Color Eva Urine Appearance Clear Urine pH 6.0 Ur Specific [place] 1.019 Urine Protein 1+ H Urine Glucose (UA) Negative Urine Ketones Negative Urine Blood Negative Urine Nitrite Negative Urine Bilirubin Negative Urine Urobilinogen 4.0 e.u/dl Ur Leukocyte Esterase Negative Urine WBC (Auto) 4 Urine RBC (Auto) None Hyaline Casts 11 Urine Mucus Many RPR Titer k supplemented Pertinent Admission Physical Exam Findings: withdrawal sx - Treatment Hospital Course: Detox Protocol Followed Patient has Accepted a Rehab Referral to: No - Medication Discharge Medications: Ambulatory Orders Atenolol [Tenormin -] 50 mg PO DAILY #30 tablet 09/07/17 - Diagnosis (1) Alcohol dependence with uncomplicated withdrawal Current Visit: Yes Status: Acute (2) Cirrhosis of liver Current Visit: Yes Status: Chronic Qualifiers: Ascites presence: without ascites (3) GERD (gastroesophageal reflux disease) Current Visit: Yes Status: Chronic Qualifiers: Esophagitis presence: without esophagitis Qualified Code(s): K21.9 - Gastro -esophageal reflux disease without esophagitis (4) HTN (hypertension) Current Visit: Yes Status: Chronic Qualifiers: Hypertension type: essential hypertension Qualified Code(s): I10 - Essential (primary) hypertension (5) Peripheral neuropathy Current Visit: Yes Status: Chronic Qualifiers: Peripheral neuropathy type: polyneuropathy, unspecified Qualified Code(s): G62.9 - Polyneuropathy, unspecified (6) Alcohol-induced sleep disorder Current Visit: No Status: Chronic (7) Hypokalemia Current Visit: No Status: Acute - AMA Did Patient Leave Against Medical Advice: Yes
[2017-09-08] MEDS ORDERED: chlordiazePOXIDE HCL 10 MG CAPSULE PO SCH (17:00)
== END 2017-09-07 20:05 | disposition left against medical advice (07) | DRG 770 ==
LOC: YASAS 08:27 → Y6N 14:24
PROVIDERS: ADMIT Internal Medicine; ATTEND Internal Medicine
PROC: HZ2ZZZZ Detoxification Services for Substance Abuse Treatment (ICD-10-PCS; principal; 2017-09-05)
DX: F10.230 Alcohol dependence with withdrawal, uncomplicated (principal); F10.282 Alcohol dependence with alcohol-induced sleep disorder; I10 Essential (primary) hypertension; K74.60 Unspecified cirrhosis of liver; K21.9 Gastro-esophageal reflux disease without esophagitis; G62.9 Polyneuropathy, unspecified; E87.6 Hypokalemia; Z91.041 Radiographic dye allergy status; Z87.891 Personal history of nicotine dependence
CPT/HCPCS: 36415; 80053; 81003; 81015; 85027; 86593; 93005; 93010

== ENCOUNTER 2017-11-05 10:59 | Inpatient (IN) | payer OTHER ==
[2017-11-05 11:26] VITALS: BMI 28.1
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
[2017-11-05] MEDS ORDERED: hydrOXYzine PAMOATE 25 MG CAPSULE (FP) PO PRN (13:16)
[2017-11-05] MEDS ORDERED: MAGNESIUM CITRATE 300 ML BOTTLE PO PRN (13:16)
[2017-11-05] MEDS ORDERED: MAGNESIUM HYDROX 2400MG/30ML ORAL SUSPENSION 30 ML CUP PO PRN (13:16)
[2017-11-05] MEDS ORDERED: ACETAMINOPHEN 325 MG TABLET (FP) PO PRN (13:16)
[2017-11-05] MEDS ORDERED: guaiFENesin/D-METHORPHAN HB 10 ML UNIT-DOSE CUPS PO PRN (13:16)
[2017-11-05] MEDS ORDERED: MENTHOL/PHENOL 1 EACH UD MM PRN (13:16)
[2017-11-05] MEDS ORDERED: IBUPROFEN 400 MG TABLET (FP) PO PRN (13:16)
[2017-11-05] MEDS ORDERED: LOPERAMIDE HCL 2 MG CAPSULE PO PRN (13:16)
[2017-11-05] MEDS ORDERED: chlordiazePOXIDE HCL 25 MG CAPSULE PO PRN (13:16)
[2017-11-05] MEDS ORDERED: chlordiazePOXIDE HCL 25 MG CAPSULE PO ONE (13:16)
[2017-11-05] MEDS ORDERED: MAG HYDROX/AL HYDROX/SIMETH 30 ML UNIT-DOSE CUP PO PRN (13:16)
[2017-11-05] MEDS ORDERED: P-EPHED 60MG/TRIPROLIDI 2.5MG TABLET PO PRN (13:16)
[2017-11-05] MEDS: ARTIFICIAL TEARS (POLYVINYL ALCOHOL 1.4%) OPTH DROPS OU SCH ×2 (17:48→22:44)
[2017-11-05] MEDS: chlordiazePOXIDE HCL 25 MG CAPSULE PO SCH ×2 (17:48→22:44)
[2017-11-05] MEDS ORDERED: TRIMETHOBENZAMIDE HCL 200MG/2ML INJ IM PRN (18:05)
[2017-11-05] MEDS ORDERED: MELATONIN 5 MG TABLETS PO PRN (22:00)
[2017-11-05] MEDS: THIAMINE HCL 100 MG TABLET (FP) PO SCH (22:44)
[2017-11-06] MEDS: chlordiazePOXIDE HCL 25 MG CAPSULE PO SCH ×4 (04:40→22:10)
[2017-11-06] MEDS: ARTIFICIAL TEARS (POLYVINYL ALCOHOL 1.4%) OPTH DROPS OU SCH ×3 (06:15→22:10)
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
[2017-11-06] MEDS: PRENATAL VITAMINS W/ FOLIC ACID TABLET (FP) PO SCH (09:55)
[2017-11-06 11:05] LABS: CHLORIDE 101 mmol/L (98-107); POTASSIUM 3.2 mmol/L (3.5-5.1); SODIUM 141 mmol/L (136-145)
[2017-11-06 11:06] LABS: HEMATOCRIT 37.7 % (35.4-49); HEMOGLOBIN 12.8 GM/dL (11.7-16.9); MCH 30.2 pg (25.7-33.7); MEAN PLT VOLUME 8.5 fl (7.5-11.1); PLATELET COUNT 47 K/MM3 (134-434); RBC 4.24 M/mm3 (4.00-5.60); RDW 14.9 % (11.9-15.9); WHITE BLOOD COUNT 3.4 K/mm3 (4.0-10.0)
[2017-11-06] MEDS: ATENOLOL 50 MG TABLET (FP) PO SCH (11:09)
--- NOTE | 2017-11-06 11:58 | PN ---
S CIWA - CIWA Score Nausea/Vomitin-Mild Nausea/No Vomiting Muscle Tremors: 4-Moderate,w/Arms Extend Anxiety: 4-Mod. Anxious/Guarded Agitation: 4-Moderately Restless Paroxysmal Sweats: 3 Orientation: 0-Oriented Tacttile Disturbances: 0-None Auditory Disturbances: 0-None Visual Disturbances: 0-None Headache: 0-None Present CIWA-Ar Total Score: 16 BHS Progress Note (SOAP) Subjective: nausea shakes chills sweats body aches interrupted sleep Objective: 11/06/17 11:57 Vital Signs Temperature 97.5 F L 11/06/17 11:08 Pulse Rate 93 H 11/06/17 11:08 Respiratory Rate 20 11/06/17 11:08 Blood Pressure 130/70 11/06/17 11:08 O2 Sat by Pulse Oximetry (%) Laboratory Tests 11/06/17 11/06/17 11/06/17 07:40 07:40 07:40 WBC 3.4 L RBC 4.24 Hgb 12.8 Hct 37.7 MCV 89.0 MCH 30.2 MCHC 34.0 RDW 14.9 Plt Count 47 L D MPV 8.5 D Sodium 141 Potassium 3.2 L Chloride 101 RPR Titer Nonreactive rest of labs pending potassium 3.2 aaox3 ambulating no acute distress Assessment: 11/06/17 11:57 withdrawal sx Plan: continue detox increase fluids tigan prn k-dur [id number] x 4 days ordered f/u pending labs
[2017-11-06 13:01] LABS: ALBUMIN 3.4 g/dl (3.4-5.0); ALK PHOS 101 U/L (45-117); ANION GAP 11 (8-16); BILIRUBIN,TOTAL 1.2 mg/dL (0.2-1.0); BLOOD UREA NITROGEN 11 mg/dL (7-18); CALCIUM 7.8 mg/dL (8.5-10.1); CO2 29 mmol/L (21-32); CREATININE 0.5 mg/dL (0.7-1.3); GLUCOSE,RANDOM 85 mg/dL (74-106); SGOT/AST 121 U/L (15-37); SGPT/ALT 73 U/L (12-78); TOT PROT 7.3 g/dl (6.4-8.2)
--- NOTE | 2017-11-06 13:02 | PN ---
[facility] Progress Note Note: Several attempts made to interview patient have not been successful. he was found in bed sleeping and will not wake up despite calling his name loudly. At last attempt, he was very drowsy and he told technical proposal writer that he was too tired to talk.
[2017-11-06] MEDS: POTASSIUM CHLORIDE TABS 20 MEQ TABLET.ER (FP) PO SCH (13:17)
--- NOTE | 2017-11-06 16:22 | EKG ---
Test Reason : Blood Pressure : / mmHG Vent. Rate : 088 BPM Atrial Rate : 088 BPM P-R Int : 156 ms QRS Dur : 086 ms QT Int : 410 ms P-R-T Axes : 051 080 039 degrees QTc Int : 496 ms NORMAL SINUS RHYTHM PROLONGED QT ABNORMAL ECG WHEN COMPARED WITH ECG OF 05-SEP-2017 15:15, NO SIGNIFICANT CHANGE WAS FOUND Confirmed by MD YESSICA, GUY ([id number]) on 11/06/2017 4:22:17 PM Referred By: Confirmed By:GUY JUAN MD
[2017-11-06] MEDS ORDERED: ARTIFICIAL TEARS (POLYVINYL ALCOHOL 1.4%) OPTH DROPS OU PRN (22:00)
[2017-11-06] MEDS: THIAMINE HCL 100 MG TABLET (FP) PO SCH (22:10)
[2017-11-06] MEDS ORDERED: TRIMETHOBENZAMIDE HCL 200MG/2ML INJ IM ONE (22:15)
--- NOTE | 2017-11-06 22:58 | PN ---
[facility] Progress Note Note: Patient was seen and examined in bed. He complained that he feels nauseous and vomited 3 times. he reports that he has not been able to hold down food. Tigan 200ml intramuscular ordered.
[2017-11-07] MEDS: chlordiazePOXIDE HCL 25 MG CAPSULE PO SCH ×2 (05:42→10:26)
[2017-11-07] MEDS: ARTIFICIAL TEARS (POLYVINYL ALCOHOL 1.4%) OPTH DROPS OU SCH ×3 (05:43→22:21)
[2017-11-07 10:00] LABS: URINE APPEARANCE CLEAR; URINE BILIRUBIN NEGATIVE (<2.0 mg/dL); URINE BLOOD NEGATIVE (NEGATIVE); URINE COLOR YELLOW; URINE GLUCOSE (UA) NEGATIVE (NEGATIVE); URINE KETONE TRACE (NEGATIVE); URINE LEUK ESTERASE NEGATIVE (NEGATIVE); URINE NITRITE NEGATIVE (NEGATIVE); URINE PROTEIN NEGATIVE (NEGATIVE); URINE UROBILINOGEN 4.0 E.U/dl mg/dL (0.2-1.0)
[2017-11-07] MEDS: PRENATAL VITAMINS W/ FOLIC ACID TABLET (FP) PO SCH (10:25)
[2017-11-07] MEDS: POTASSIUM CHLORIDE TABS 20 MEQ TABLET.ER (FP) PO SCH (10:26)
[2017-11-07] MEDS ORDERED: ONDANSETRON *ODT* 4 MG TABLET SL PRN (10:47)
[2017-11-07] MEDS: ATENOLOL 50 MG TABLET (FP) PO SCH ×2 (11:11→12:13)
--- NOTE | 2017-11-07 16:43 | PN ---
S CIWA - CIWA Score Nausea/Vomitin Muscle Tremors: 3 Anxiety: 4-Mod. Anxious/Guarded Agitation: 3 Paroxysmal Sweats: No Perspiration Orientation: 0-Oriented Tacttile Disturbances: 0-None Auditory Disturbances: 2-Mild Harshness/Frighten Visual Disturbances: 3-Moderate Sensitivity Headache: 0-None Present CIWA-Ar Total Score: 18 BHS Progress Note (SOAP) Subjective: Stomach Cramping, Fatigue, Nausea, Tremors, Anxious. Objective: PATIENT A & O X 3. NO ACUTE DISTRESS. 11/07/17 16:39 Vital Signs Temperature 96.9 F L 11/07/17 13:28 Pulse Rate 72 11/07/17 13:28 Respiratory Rate 18 11/07/17 13:28 Blood Pressure 136/81 11/07/17 13:28 O2 Sat by Pulse Oximetry (%) Laboratory Tests 11/06/17 11/06/17 11/06/17 07:40 07:40 07:40 WBC 3.4 L RBC 4.24 Hgb 12.8 Hct 37.7 MCV 89.0 MCH 30.2 MCHC 34.0 RDW 14.9 Plt Count 47 L D MPV 8.5 D Sodium 141 Potassium 3.2 L Chloride 101 Carbon Dioxide 29 Anion Gap 11 BUN 11 Creatinine 0.5 L Creat Clearance w eGFR > 60 Random Glucose 85 D Calcium 7.8 L Total Bilirubin 1.2 H AST 121 H ALT 73 Alkaline Phosphatase 101 Total Protein 7.3 Albumin 3.4 Urine Color Urine Appearance Urine pH Ur Specific [place] Urine Protein Urine Glucose (UA) Urine Ketones Urine Blood Urine Nitrite Urine Bilirubin Urine Urobilinogen Ur Leukocyte Esterase RPR Titer Nonreactive 11/07/17 07:45 WBC RBC Hgb Hct MCV MCH MCHC RDW Plt Count MPV Sodium Potassium Chloride Carbon Dioxide Anion Gap BUN Creatinine Creat Clearance w eGFR Random Glucose Calcium Total Bilirubin AST ALT Alkaline Phosphatase Total Protein Albumin Urine Color Yellow Urine Appearance Clear Urine pH 8.0 D Ur Specific [place] 1.013 Urine Protein Negative Urine Glucose (UA) Negative Urine Ketones Trace H Urine Blood Negative Urine Nitrite Negative Urine Bilirubin Negative Urine Urobilinogen 4.0 e.u/dl Ur Leukocyte Esterase Negative RPR Titer labs noted. Assessment: 11/07/17 16:39 WITHDRAWAL SYMPTOMS. HYPOKALEMIA. 11/07/17 16:43 Plan: CONTINUE DETOX. CONTINUE K-DUR.
[2017-11-07] MEDS: chlordiazePOXIDE 5 MG CAPSULE PO SCH ×2 (17:36→22:21)
[2017-11-07] MEDS: THIAMINE HCL 100 MG TABLET (FP) PO SCH (22:21)
[2017-11-07] MEDS: TRIMETHOBENZAMIDE HCL 300 MG CAPSULE PO PRN (22:24)
[2017-11-08] MEDS: chlordiazePOXIDE 5 MG CAPSULE PO SCH ×2 (05:21→10:32)
[2017-11-08] MEDS: ARTIFICIAL TEARS (POLYVINYL ALCOHOL 1.4%) OPTH DROPS OU SCH ×3 (05:22→22:30)
[2017-11-08] MEDS: POTASSIUM CHLORIDE TABS 20 MEQ TABLET.ER (FP) PO SCH (10:32)
[2017-11-08] MEDS: PRENATAL VITAMINS W/ FOLIC ACID TABLET (FP) PO SCH (10:32)
[2017-11-08] MEDS: ATENOLOL 50 MG TABLET (FP) PO SCH (10:33)
--- NOTE | 2017-11-08 13:06 | PN ---
[facility] Progress Note (SOAP) Subjective: ANXIETY,SWEATS,FATIGUE. OOB ON [address] WITH STEADY GAIT. Objective: 11/08/17 13:03 Vital Signs Temperature 96.6 F L 11/08/17 09:17 Pulse Rate 73 11/08/17 09:17 Respiratory Rate 18 11/08/17 09:17 Blood Pressure 116/77 11/08/17 09:17 O2 Sat by Pulse Oximetry (%) Laboratory Last Values WBC 3.4 K/mm3 (4.0-10.0) L 11/06/17 07:40 RBC 4.24 M/mm3 (4.00-5.60) 11/06/17 07:40 Hgb 12.8 GM/dL (11.7-16.9) 11/06/17 07:40 Hct 37.7 % (35.4-49) 11/06/17 07:40 MCV 89.0 fl (80-96) 11/06/17 07:40 MCH 30.2 pg (25.7-33.7) 11/06/17 07:40 MCHC 34.0 g/dl (32.0-35.9) 11/06/17 07:40 RDW 14.9 % (11.9-15.9) 11/06/17 07:40 Plt Count 48 K/MM3 (134-434) L 11/08/17 08:00 MPV 8.5 fl (7.5-11.1) D 11/06/17 07:40 Sodium 141 mmol/L (136-145) 11/06/17 07:40 Potassium 3.2 mmol/L (3.5-5.1) L 11/06/17 07:40 Chloride 101 mmol/L (98-107) 11/06/17 07:40 Carbon Dioxide 29 mmol/L (21-32) 11/06/17 07:40 Anion Gap 11 (8-16) 11/06/17 07:40 BUN 11 mg/dL (7-18) 11/06/17 07:40 Creatinine 0.5 mg/dL (0.7-1.3) L 11/06/17 07:40 Creat Clearance w eGFR > 60 (>60) 11/06/17 07:40 Random Glucose 85 mg/dL (74-106) D 11/06/17 07:40 Calcium 7.8 mg/dL (8.5-10.1) L 11/06/17 07:40 Total Bilirubin 1.2 mg/dL (0.2-1.0) H 11/06/17 07:40 AST 121 U/L (15-37) H 11/06/17 07:40 ALT 73 U/L (12-78) 11/06/17 07:40 Alkaline Phosphatase 101 U/L (45-117) 11/06/17 07:40 Total Protein 7.3 g/dl (6.4-8.2) 11/06/17 07:40 Albumin 3.4 g/dl (3.4-5.0) 11/06/17 07:40 Urine Color Yellow 11/07/17 07:45 Urine Appearance Clear 11/07/17 07:45 Urine pH 8.0 (5.0-8.0) D 11/07/17 07:45 Ur Specific [place] 1.013 (1.001-1.035) 11/07/17 07:45 Urine Protein Negative (NEGATIVE) 11/07/17 07:45 Urine Glucose (UA) Negative (NEGATIVE) 11/07/17 07:45 Urine Ketones Trace (NEGATIVE) H 11/07/17 07:45 Urine Blood Negative (NEGATIVE) 11/07/17 07:45 Urine Nitrite Negative (NEGATIVE) 11/07/17 07:45 Urine Bilirubin Negative (<2.0 mg/dL) 11/07/17 07:45 Urine Urobilinogen 4.0 e.u/dl mg/dL (0.2-1.0) 11/07/17 07:45 Ur Leukocyte Esterase Negative (NEGATIVE) 11/07/17 07:45 RPR Titer Nonreactive (NONREACTIVE) 11/06/17 07:40 Assessment: 11/08/17 13:05 WITHDRAWAL SX Plan: CONTINUE DETOX REPEAT CMP TODAY.
[2017-11-08] MEDS: TRIMETHOBENZAMIDE HCL 300 MG CAPSULE PO PRN (14:23)
[2017-11-08 15:34] LABS: CHLORIDE 101 mmol/L (98-107); POTASSIUM 3.8 mmol/L (3.5-5.1); SODIUM 137 mmol/L (136-145)
[2017-11-08 15:57] LABS: ALBUMIN 3.7 g/dl (3.4-5.0); ALK PHOS 120 U/L (45-117); ANION GAP 9 (8-16); BILIRUBIN,TOTAL 2.1 mg/dL (0.2-1.0); BLOOD UREA NITROGEN 11 mg/dL (7-18); CALCIUM 9.1 mg/dL (8.5-10.1); CO2 27 mmol/L (21-32); CREATININE 0.6 mg/dL (0.7-1.3); GLUCOSE,RANDOM 124 mg/dL (74-106); SGOT/AST 98 U/L (15-37); SGPT/ALT 72 U/L (12-78); TOT PROT 7.9 g/dl (6.4-8.2)
[2017-11-08] MEDS: chlordiazePOXIDE HCL 10 MG CAPSULE PO SCH ×2 (17:02→22:30)
--- NOTE | 2017-11-08 17:25 | PN ---
[facility] Progress Note Note: PT C/O NAUSEA AND VOMITING,FATIGUE. STATES "I DON'T FEEL WELL. PLAN:ANTIEMETIC PRN
[2017-11-08] MEDS: THIAMINE HCL 100 MG TABLET (FP) PO SCH (22:31)
[2017-11-09] MEDS: chlordiazePOXIDE HCL 10 MG CAPSULE PO SCH (05:46)
[2017-11-09] MEDS: ARTIFICIAL TEARS (POLYVINYL ALCOHOL 1.4%) OPTH DROPS OU SCH (05:46)
[2017-11-09 06:16] VITALS: BP 107/69; PULSE 75; TEMP 97.6
[2017-11-09] MEDS: ATENOLOL 50 MG TABLET (FP) PO SCH (09:21)
--- NOTE | 2017-11-09 13:49 | PN ---
S Progress Note (SOAP) Subjective: ALERT O X3. PT OOB AMBULATING WITH STEADY GAIT. DENIES N/V/D OR ANY ACUTE SX THIS MORNING. PT REMINDED THIS [employer] S[employer]TER THAT TODAY IS HIS DISCHARGE DAY AND READY TO LEAVE. PT REPORTS HE USES [facility] FOR HIS PRIMARY CARE. PT DECLINED REHAB WHEN ASKED ABOUT AFTERCARE. Objective: 11/09/17 13:48 Vital Signs Temperature 97.6 F 11/09/17 06:15 Pulse Rate 75 11/09/17 06:15 Respiratory Rate 18 11/09/17 06:15 Blood Pressure 107/69 11/09/17 06:15 O2 Sat by Pulse Oximetry (%) Laboratory Last Values WBC 3.4 K/mm3 (4.0-10.0) L 11/06/17 07:40 RBC 4.24 M/mm3 (4.00-5.60) 11/06/17 07:40 Hgb 12.8 GM/dL (11.7-16.9) 11/06/17 07:40 Hct 37.7 % (35.4-49) 11/06/17 07:40 MCV 89.0 fl (80-96) 11/06/17 07:40 MCH 30.2 pg (25.7-33.7) 11/06/17 07:40 MCHC 34.0 g/dl (32.0-35.9) 11/06/17 07:40 RDW 14.9 % (11.9-15.9) 11/06/17 07:40 Plt Count 48 K/MM3 (134-434) L 11/08/17 08:00 MPV 8.5 fl (7.5-11.1) D 11/06/17 07:40 Sodium 137 mmol/L (136-145) 11/08/17 13:00 Potassium 3.8 mmol/L (3.5-5.1) 11/08/17 13:00 Chloride 101 mmol/L (98-107) 11/08/17 13:00 Carbon Dioxide 27 mmol/L (21-32) 11/08/17 13:00 Anion Gap 9 (8-16) 11/08/17 13:00 BUN 11 mg/dL (7-18) 11/08/17 13:00 Creatinine 0.6 mg/dL (0.7-1.3) L 11/08/17 13:00 Creat Clearance w eGFR > 60 (>60) 11/08/17 13:00 Random Glucose 124 mg/dL (74-106) H D 11/08/17 13:00 Calcium 9.1 mg/dL (8.5-10.1) 11/08/17 13:00 Total Bilirubin 2.1 mg/dL (0.2-1.0) H D 11/08/17 13:00 AST 98 U/L (15-37) H 11/08/17 13:00 ALT 72 U/L (12-78) 11/08/17 13:00 Alkaline Phosphatase 120 U/L (45-117) H 11/08/17 13:00 Total Protein 7.9 g/dl (6.4-8.2) 11/08/17 13:00 Albumin 3.7 g/dl (3.4-5.0) 11/08/17 13:00 Urine Color Yellow 11/07/17 07:45 Urine Appearance Clear 11/07/17 07:45 Urine pH 8.0 (5.0-8.0) D 11/07/17 07:45 Ur Specific [place] 1.013 (1.001-1.035) 11/07/17 07:45 Urine Protein Negative (NEGATIVE) 11/07/17 07:45 Urine Glucose (UA) Negative (NEGATIVE) 11/07/17 07:45 Urine Ketones Trace (NEGATIVE) H 11/07/17 07:45 Urine Blood Negative (NEGATIVE) 11/07/17 07:45 Urine Nitrite Negative (NEGATIVE) 11/07/17 07:45 Urine Bilirubin Negative (<2.0 mg/dL) 11/07/17 07:45 Urine Urobilinogen 4.0 e.u/dl mg/dL (0.2-1.0) 11/07/17 07:45 Ur Leukocyte Esterase Negative (NEGATIVE) 11/07/17 07:45 RPR Titer Nonreactive (NONREACTIVE) 11/06/17 07:40 Assessment: 11/09/17 13:49 NAD Plan: D/C PT TODAY
--- NOTE | 2017-11-09 13:56 | DS ---
[facility] Detox Discharge Summary Admission Date: 11/05/17 Discharge Date: 11/09/17 - History Present History: Alcohol Dependence Additional Comments: DETOX COMPLETED. ALERT O X 3. NAD. Pertinent Past History: PLEASE SEE DX BELOW - Physical Exam Results Vital Signs: Vital Signs Temperature 97.6 F 11/09/17 06:15 Pulse Rate 75 11/09/17 06:15 Respiratory Rate 18 11/09/17 06:15 Blood Pressure 107/69 11/09/17 06:15 O2 Sat by Pulse Oximetry (%) Pertinent Admission Physical Exam Findings: WITHDRAWAL SX Laboratory Last Values WBC 3.4 K/mm3 (4.0-10.0) L 11/06/17 07:40 RBC 4.24 M/mm3 (4.00-5.60) 11/06/17 07:40 Hgb 12.8 GM/dL (11.7-16.9) 11/06/17 07:40 Hct 37.7 % (35.4-49) 11/06/17 07:40 MCV 89.0 fl (80-96) 11/06/17 07:40 MCH 30.2 pg (25.7-33.7) 11/06/17 07:40 MCHC 34.0 g/dl (32.0-35.9) 11/06/17 07:40 RDW 14.9 % (11.9-15.9) 11/06/17 07:40 Plt Count 48 K/MM3 (134-434) L 11/08/17 08:00 MPV 8.5 fl (7.5-11.1) D 11/06/17 07:40 Sodium 137 mmol/L (136-145) 11/08/17 13:00 Potassium 3.8 mmol/L (3.5-5.1) 11/08/17 13:00 Chloride 101 mmol/L (98-107) 11/08/17 13:00 Carbon Dioxide 27 mmol/L (21-32) 11/08/17 13:00 Anion Gap 9 (8-16) 11/08/17 13:00 BUN 11 mg/dL (7-18) 11/08/17 13:00 Creatinine 0.6 mg/dL (0.7-1.3) L 11/08/17 13:00 Creat Clearance w eGFR > 60 (>60) 11/08/17 13:00 Random Glucose 124 mg/dL (74-106) H D 11/08/17 13:00 Calcium 9.1 mg/dL (8.5-10.1) 11/08/17 13:00 Total Bilirubin 2.1 mg/dL (0.2-1.0) H D 11/08/17 13:00 AST 98 U/L (15-37) H 11/08/17 13:00 ALT 72 U/L (12-78) 11/08/17 13:00 Alkaline Phosphatase 120 U/L (45-117) H 11/08/17 13:00 Total Protein 7.9 g/dl (6.4-8.2) 11/08/17 13:00 Albumin 3.7 g/dl (3.4-5.0) 11/08/17 13:00 Urine Color Yellow 11/07/17 07:45 Urine Appearance Clear 11/07/17 07:45 Urine pH 8.0 (5.0-8.0) D 11/07/17 07:45 Ur Specific [place] 1.013 (1.001-1.035) 11/07/17 07:45 Urine Protein Negative (NEGATIVE) 11/07/17 07:45 Urine Glucose (UA) Negative (NEGATIVE) 11/07/17 07:45 Urine Ketones Trace (NEGATIVE) H 11/07/17 07:45 Urine Blood Negative (NEGATIVE) 11/07/17 07:45 Urine Nitrite Negative (NEGATIVE) 11/07/17 07:45 Urine Bilirubin Negative (<2.0 mg/dL) 11/07/17 07:45 Urine Urobilinogen 4.0 e.u/dl mg/dL (0.2-1.0) 11/07/17 07:45 Ur Leukocyte Esterase Negative (NEGATIVE) 11/07/17 07:45 RPR Titer Nonreactive (NONREACTIVE) 11/06/17 07:40 - Treatment Hospital Course: Detox Protocol Followed, Detoxed Safely, Responded well, Discharged Condition Good - Medication Discharge Medications: Ambulatory Orders Atenolol [Tenormin -] 50 mg PO DAILY #30 tablet 09/07/17 - Diagnosis (1) Alcohol dependence with uncomplicated withdrawal Status: Acute (2) Hypokalemia Status: Acute (3) Cirrhosis of liver Status: Chronic Qualifiers: Hepatic cirrhosis type: unspecified hepatic cirrhosis Ascites presence: unspecified Qualified Code(s): K74.60 - Unspecified cirrhosis of liver (4) GERD (gastroesophageal reflux disease) Status: Chronic Qualifiers: Esophagitis presence: without esophagitis Qualified Code(s): K21.9 - Gastro -esophageal reflux disease without esophagitis (5) HTN (hypertension) Status: Chronic Qualifiers: Hypertension type: essential hypertension Qualified Code(s): I10 - Essential (primary) hypertension (6) Peripheral neuropathy Status: Chronic Qualifiers: Peripheral neuropathy type: polyneuropathy, alcohol-induced Qualified Code( s): G62.1 - Alcoholic polyneuropathy - AMA Did Patient Leave Against Medical Advice: No
== END 2017-11-09 09:21 | disposition home or self-care (01) | DRG 775 ==
LOC: YASAS 10:59 → Y3N 16:38
PROVIDERS: ADMIT Internal Medicine; ATTEND Internal Medicine
PROC: HZ2ZZZZ Detoxification Services for Substance Abuse Treatment (ICD-10-PCS; principal; 2017-11-05)
DX: F10.230 Alcohol dependence with withdrawal, uncomplicated (principal); K21.9 Gastro-esophageal reflux disease without esophagitis; K74.60 Unspecified cirrhosis of liver; G62.9 Polyneuropathy, unspecified; R55 Syncope and collapse; H57.8 Other specified disorders of eye and adnexa; I10 Essential (primary) hypertension; Z87.828 Personal history of other (healed) physical injury and trauma
CPT/HCPCS: 36415; 80053; 81003; 85027; 85032; 86593; 93005; 93010

== ENCOUNTER 2017-12-02 23:07 | Emergency (ER) | payer OTHER ==
[2017-12-02 23:15] VITALS: BP 103/71; PULSE 68; TEMP 97.3; BMI 25.8
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
== END 2017-12-03 06:00 | disposition home or self-care (01) ==
LOC: JER 23:07
DX: F10.120 Alcohol abuse with intoxication, uncomplicated (principal); I10 Essential (primary) hypertension; Z91.14 Patient's other noncompliance with medication regimen; K76.9 Liver disease, unspecified
CPT/HCPCS: 99282-25

== ENCOUNTER 2018-03-21 14:43 | Inpatient (IN) | payer OTHER ==
[2018-03-21] MEDS ORDERED: MENTHOL/PHENOL 1 EACH UD MM PRN (16:12)
[2018-03-21] MEDS ORDERED: hydrOXYzine PAMOATE 50 MG CAPSULE (FP) PO PRN (16:12)
[2018-03-21] MEDS ORDERED: MAGNESIUM HYDROX 2400MG/30ML ORAL SUSPENSION 30 ML CUP PO PRN (16:12)
[2018-03-21] MEDS ORDERED: ACETAMINOPHEN 325 MG TABLET (FP) PO PRN (16:12)
[2018-03-21] MEDS ORDERED: LOPERAMIDE HCL 2 MG CAPSULE PO PRN (16:12)
[2018-03-21] MEDS ORDERED: MAGNESIUM CITRATE 300 ML BOTTLE PO PRN (16:12)
[2018-03-21] MEDS ORDERED: guaiFENesin/D-METHORPHAN HB 10 ML UNIT-DOSE CUPS PO PRN (16:12)
[2018-03-21] MEDS ORDERED: MAG HYDROX/AL HYDROX/SIMETH 30 ML UNIT-DOSE CUP PO PRN (16:12)
[2018-03-21] MEDS ORDERED: IBUPROFEN 400 MG TABLET (FP) PO PRN (16:12)
[2018-03-21] MEDS ORDERED: P-EPHED 60MG/TRIPROLIDI 2.5MG TABLET PO PRN (16:12)
--- NOTE | 2018-03-21 16:12 | HP ---
[facility] Rehab Assess/Revision - Admission History Admitted to Rehab from: [facility] Date of Admission to Rehab: 03/21/18 - Vital signs Vital Signs: Vital Signs Period Temp Pulse Resp BP Sys/Conde Pulse Ox Last 24 Hr 65 18 106/69 - Findings Detox History & Physical reviewed: Yes Concur with findings: Yes Comments/Additional Findings: for rehab as protocol Inpatient Rehab Admission - Initial Determination Are CD services needed?: Yes Free of communicable disease: Yes Not in need of hospitalization: Yes - Rehab Admission Criteria Previous failed treatment: Yes Poor recovery environment: Yes Comorbidities: Yes Lacks judgement: No Patient is meeting Inpatient Rehab admission criteria:: Yes
[2018-03-21] MEDS: MELATONIN 5 MG TABLETS PO PRN (21:22)
[2018-03-21] MEDS: THIAMINE HCL 100 MG TABLET (FP) PO SCH (21:22)
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
[2018-03-22] MEDS: POTASSIUM CHLORIDE TABS 20 MEQ TABLET.ER (FP) PO SCH (10:11)
[2018-03-22] MEDS: ATENOLOL 50 MG TABLET (FP) PO SCH (10:11)
[2018-03-22] MEDS: PRENATAL VITAMINS W/ FOLIC ACID TABLET (FP) PO SCH (10:11)
--- NOTE | 2018-03-22 12:42 | PN ---
[facility] Progress Note Note: Patient presents with c/o dry eyes. Pt medically stable. +PERRLA, EOMS intact BL. No redness or swelling noted. A/P dry eyes. Will order Artificial tears OU tid. Continue to monitor clinically.
[2018-03-22] MEDS: MELATONIN 5 MG TABLETS PO PRN (21:14)
[2018-03-22] MEDS: THIAMINE HCL 100 MG TABLET (FP) PO SCH (21:15)
[2018-03-23] MEDS: PRENATAL VITAMINS W/ FOLIC ACID TABLET (FP) PO SCH (10:11)
[2018-03-23] MEDS: ATENOLOL 50 MG TABLET (FP) PO SCH (10:13)
[2018-03-23] MEDS: POTASSIUM CHLORIDE TABS 20 MEQ TABLET.ER (FP) PO SCH (10:13)
[2018-03-23] MEDS: ARTIFICIAL TEARS (POLYVINYL ALCOHOL) OPTH DROPS OU PRN (10:14)
[2018-03-23] MEDS: MELATONIN 5 MG TABLETS PO PRN (21:37)
[2018-03-23] MEDS: THIAMINE HCL 100 MG TABLET (FP) PO SCH (21:37)
[2018-03-24] MEDS: POTASSIUM CHLORIDE TABS 20 MEQ TABLET.ER (FP) PO SCH (10:06)
[2018-03-24] MEDS: ATENOLOL 50 MG TABLET (FP) PO SCH (10:06)
[2018-03-24] MEDS: PRENATAL VITAMINS W/ FOLIC ACID TABLET (FP) PO SCH (10:06)
[2018-03-24] MEDS: THIAMINE HCL 100 MG TABLET (FP) PO SCH (21:13)
[2018-03-24] MEDS: RIFAXIMIN 550 MG TABLET (UD) PO SCH (21:14)
[2018-03-24] MEDS: MELATONIN 5 MG TABLETS PO PRN (21:15)
[2018-03-25] MEDS: PRENATAL VITAMINS W/ FOLIC ACID TABLET (FP) PO SCH (09:58)
[2018-03-25] MEDS: RIFAXIMIN 550 MG TABLET (UD) PO SCH ×2 (09:58→21:22)
[2018-03-25] MEDS: POTASSIUM CHLORIDE TABS 20 MEQ TABLET.ER (FP) PO SCH (09:58)
[2018-03-25] MEDS: ATENOLOL 50 MG TABLET (FP) PO SCH (09:59)
[2018-03-25] MEDS: THIAMINE HCL 100 MG TABLET (FP) PO SCH (21:22)
[2018-03-25] MEDS: MELATONIN 5 MG TABLETS PO PRN (21:23)
[2018-03-26] MEDS: POTASSIUM CHLORIDE TABS 20 MEQ TABLET.ER (FP) PO SCH (10:22)
[2018-03-26] MEDS: PRENATAL VITAMINS W/ FOLIC ACID TABLET (FP) PO SCH (10:22)
[2018-03-26] MEDS: ATENOLOL 50 MG TABLET (FP) PO SCH (10:22)
[2018-03-26] MEDS: RIFAXIMIN 550 MG TABLET (UD) PO SCH ×2 (10:22→21:42)
[2018-03-26] MEDS: THIAMINE HCL 100 MG TABLET (FP) PO SCH (21:41)
[2018-03-26] MEDS: ARTIFICIAL TEARS (POLYVINYL ALCOHOL) OPTH DROPS OU PRN (21:41)
[2018-03-27] MEDS: ARTIFICIAL TEARS (POLYVINYL ALCOHOL) OPTH DROPS OU PRN ×2 (06:16→21:20)
[2018-03-27] MEDS: PRENATAL VITAMINS W/ FOLIC ACID TABLET (FP) PO SCH (09:52)
[2018-03-27] MEDS: POTASSIUM CHLORIDE TABS 20 MEQ TABLET.ER (FP) PO SCH (09:52)
[2018-03-27] MEDS: RIFAXIMIN 550 MG TABLET (UD) PO SCH ×2 (09:52→21:19)
[2018-03-27] MEDS: ATENOLOL 50 MG TABLET (FP) PO SCH (09:52)
--- NOTE | 2018-03-27 12:31 | PN ---
S Progress Note Note: Vital Signs Temperature 98.0 F 03/27/18 06:54 Pulse Rate 65 03/27/18 06:54 Respiratory Rate 18 03/27/18 06:54 Blood Pressure 131/83 03/27/18 06:54 O2 Sat by Pulse Oximetry (%) c/o of acid reflux protoinix qd low acidic diet continue to monitor
--- NOTE | 2018-03-27 13:14 | PN ---
[facility] Progress Note Note: Vital Signs Temperature 98.0 F 03/27/18 06:54 Pulse Rate 65 03/27/18 06:54 Respiratory Rate 18 03/27/18 06:54 Blood Pressure 131/83 03/27/18 06:54 O2 Sat by Pulse Oximetry (%) Patient reports taking lactulose BID of "liver problems ": and constipation. Home med list reviewed. lactulose 20 mg BID ordered increase fluids continue to monitor
[2018-03-27] MEDS: LACTULOSE 20 GM/30 ML UDC (FOR ORAL USE ONLY) PO SCH (21:17)
[2018-03-27] MEDS: THIAMINE HCL 100 MG TABLET (FP) PO SCH (21:17)
[2018-03-28] MEDS: POTASSIUM CHLORIDE TABS 20 MEQ TABLET.ER (FP) PO SCH (10:07)
[2018-03-28] MEDS: PANTOPRAZOLE 20 MG TABLET (FP) PO SCH (10:07)
[2018-03-28] MEDS: RIFAXIMIN 550 MG TABLET (UD) PO SCH ×2 (10:07→21:19)
[2018-03-28] MEDS: PRENATAL VITAMINS W/ FOLIC ACID TABLET (FP) PO SCH (10:07)
[2018-03-28] MEDS: ATENOLOL 50 MG TABLET (FP) PO SCH (10:07)
[2018-03-28] MEDS: LACTULOSE 20 GM/30 ML UDC (FOR ORAL USE ONLY) PO SCH ×2 (10:07→21:19)
[2018-03-28] MEDS: ARTIFICIAL TEARS (POLYVINYL ALCOHOL) OPTH DROPS OU PRN ×2 (10:08→21:19)
[2018-03-28] MEDS: THIAMINE HCL 100 MG TABLET (FP) PO SCH (21:19)
[2018-03-29] MEDS ORDERED: PT OWN MED DRAWER 7, Y5N ONE ×2 (09:15→13:26)
[2018-03-29] MEDS: ATENOLOL 50 MG TABLET (FP) PO SCH (09:51)
[2018-03-29] MEDS: RIFAXIMIN 550 MG TABLET (UD) PO SCH ×2 (09:51→21:20)
[2018-03-29] MEDS: PRENATAL VITAMINS W/ FOLIC ACID TABLET (FP) PO SCH (09:51)
[2018-03-29] MEDS: PANTOPRAZOLE 20 MG TABLET (FP) PO SCH (09:51)
[2018-03-29] MEDS: POTASSIUM CHLORIDE TABS 20 MEQ TABLET.ER (FP) PO SCH (09:51)
[2018-03-29] MEDS: ARTIFICIAL TEARS (POLYVINYL ALCOHOL) OPTH DROPS OU PRN ×2 (09:52→13:28)
[2018-03-29] MEDS: LACTULOSE 20 GM/30 ML UDC (FOR ORAL USE ONLY) PO SCH ×2 (09:53→21:20)
--- NOTE | 2018-03-29 12:50 | PN ---
[facility] Progress Note Note: Vital Signs Temperature 97.5 F L 03/29/18 06:46 Pulse Rate 69 03/29/18 06:46 Respiratory Rate 18 03/29/18 06:46 Blood Pressure 128/84 03/29/18 06:46 O2 Sat by Pulse Oximetry (%) Patient on K-dur patient requested cream for healed scar on the right eyelid, patient to follow up with PCP. labs 03/19/18 low K+ levels repeat potassium in AM continue to monitor
[2018-03-29] MEDS: THIAMINE HCL 100 MG TABLET (FP) PO SCH (21:20)
[2018-03-30] MEDS: LACTULOSE 20 GM/30 ML UDC (FOR ORAL USE ONLY) PO SCH ×2 (10:05→21:18)
[2018-03-30] MEDS: ATENOLOL 50 MG TABLET (FP) PO SCH (10:05)
[2018-03-30] MEDS: PANTOPRAZOLE 20 MG TABLET (FP) PO SCH (10:05)
[2018-03-30] MEDS: POTASSIUM CHLORIDE TABS 20 MEQ TABLET.ER (FP) PO SCH (10:05)
[2018-03-30] MEDS: PRENATAL VITAMINS W/ FOLIC ACID TABLET (FP) PO SCH (10:06)
[2018-03-30] MEDS: RIFAXIMIN 550 MG TABLET (UD) PO SCH ×2 (10:06→21:18)
[2018-03-30] MEDS: ARTIFICIAL TEARS (POLYVINYL ALCOHOL) OPTH DROPS OU PRN (10:08)
[2018-03-30] MEDS: THIAMINE HCL 100 MG TABLET (FP) PO SCH (21:18)
[2018-03-31] MEDS: POTASSIUM CHLORIDE TABS 20 MEQ TABLET.ER (FP) PO SCH (10:04)
[2018-03-31] MEDS: ATENOLOL 50 MG TABLET (FP) PO SCH (10:04)
[2018-03-31] MEDS: PANTOPRAZOLE 20 MG TABLET (FP) PO SCH (10:04)
[2018-03-31] MEDS: PRENATAL VITAMINS W/ FOLIC ACID TABLET (FP) PO SCH (10:04)
[2018-03-31] MEDS: LACTULOSE 20 GM/30 ML UDC (FOR ORAL USE ONLY) PO SCH ×2 (10:04→21:12)
[2018-03-31] MEDS: RIFAXIMIN 550 MG TABLET (UD) PO SCH ×3 (10:05→21:12)
[2018-03-31] MEDS: VITAMINS A AND D TOPICAL OINTMENT 60 GM TUBE TP SCH ×2 (12:57→17:06)
[2018-03-31] MEDS: THIAMINE HCL 100 MG TABLET (FP) PO SCH (21:12)
[2018-04-01] MEDS: VITAMINS A AND D TOPICAL OINTMENT 60 GM TUBE TP SCH ×4 (00:36→18:00)
[2018-04-01] MEDS: PANTOPRAZOLE 20 MG TABLET (FP) PO SCH (09:54)
[2018-04-01] MEDS: RIFAXIMIN 550 MG TABLET (UD) PO SCH ×2 (09:54→22:09)
[2018-04-01] MEDS: PRENATAL VITAMINS W/ FOLIC ACID TABLET (FP) PO SCH (09:54)
[2018-04-01] MEDS: ATENOLOL 50 MG TABLET (FP) PO SCH (09:54)
[2018-04-01] MEDS: LACTULOSE 20 GM/30 ML UDC (FOR ORAL USE ONLY) PO SCH ×2 (09:54→21:12)
[2018-04-01 10:19] LABS: CHLORIDE 103 mmol/L (98-107); POTASSIUM 4.5 mmol/L (3.5-5.1); SODIUM 142 mmol/L (136-145)
[2018-04-01 10:35] LABS: ALBUMIN 3.5 g/dl (3.4-5.0); ALK PHOS 125 U/L (45-117); ANION GAP 8 MMOL/L (8-16); BILIRUBIN,TOTAL 0.4 mg/dL (0.2-1.0); BLOOD UREA NITROGEN 13 mg/dL (7-18); CALCIUM 8.7 mg/dL (8.5-10.1); CO2 31 mmol/L (21-32); CREATININE 0.6 mg/dL (0.7-1.3); GLUCOSE,RANDOM 83 mg/dL (74-106); SGOT/AST 44 U/L (15-37); SGPT/ALT 61 U/L (12-78); TOT PROT 7.2 g/dl (6.4-8.2)
[2018-04-01] MEDS: THIAMINE HCL 100 MG TABLET (FP) PO SCH (21:12)
[2018-04-02] MEDS: VITAMINS A AND D TOPICAL OINTMENT 60 GM TUBE TP SCH ×4 (01:10→17:35)
[2018-04-02] MEDS: PANTOPRAZOLE 20 MG TABLET (FP) PO SCH (09:10)
[2018-04-02] MEDS: LACTULOSE 20 GM/30 ML UDC (FOR ORAL USE ONLY) PO SCH ×2 (09:10→21:13)
[2018-04-02] MEDS: PRENATAL VITAMINS W/ FOLIC ACID TABLET (FP) PO SCH (09:10)
[2018-04-02] MEDS: ATENOLOL 50 MG TABLET (FP) PO SCH (09:10)
[2018-04-02] MEDS: ARTIFICIAL TEARS (POLYVINYL ALCOHOL) OPTH DROPS OU PRN (09:11)
[2018-04-02] MEDS: RIFAXIMIN 550 MG TABLET (UD) PO SCH ×2 (09:11→21:13)
[2018-04-02] MEDS: THIAMINE HCL 100 MG TABLET (FP) PO SCH (21:13)
[2018-04-03] MEDS: VITAMINS A AND D TOPICAL OINTMENT 60 GM TUBE TP SCH ×4 (01:58→18:35)
[2018-04-03] MEDS ORDERED: PT OWN MED DRAWER 7, Y5N ONE ×2 (08:43→10:12)
[2018-04-03] MEDS: LACTULOSE 20 GM/30 ML UDC (FOR ORAL USE ONLY) PO SCH ×2 (10:10→21:21)
[2018-04-03] MEDS: PANTOPRAZOLE 20 MG TABLET (FP) PO SCH (10:10)
[2018-04-03] MEDS: ATENOLOL 50 MG TABLET (FP) PO SCH (10:10)
[2018-04-03] MEDS: PRENATAL VITAMINS W/ FOLIC ACID TABLET (FP) PO SCH (10:10)
[2018-04-03] MEDS: RIFAXIMIN 550 MG TABLET (UD) PO SCH ×2 (10:10→21:21)
[2018-04-03] MEDS: THIAMINE HCL 100 MG TABLET (FP) PO SCH (21:21)
[2018-04-04] MEDS: VITAMINS A AND D TOPICAL OINTMENT 60 GM TUBE TP SCH ×4 (02:05→17:30)
[2018-04-04] MEDS: PANTOPRAZOLE 20 MG TABLET (FP) PO SCH (09:42)
[2018-04-04] MEDS: RIFAXIMIN 550 MG TABLET (UD) PO SCH ×2 (09:42→21:14)
[2018-04-04] MEDS: LACTULOSE 20 GM/30 ML UDC (FOR ORAL USE ONLY) PO SCH ×2 (09:42→21:14)
[2018-04-04] MEDS: PRENATAL VITAMINS W/ FOLIC ACID TABLET (FP) PO SCH (09:42)
[2018-04-04] MEDS: ATENOLOL 50 MG TABLET (FP) PO SCH (09:42)
[2018-04-04] MEDS: THIAMINE HCL 100 MG TABLET (FP) PO SCH (21:14)
[2018-04-05] MEDS: VITAMINS A AND D TOPICAL OINTMENT 60 GM TUBE TP SCH ×4 (00:39→17:09)
[2018-04-05] MEDS: RIFAXIMIN 550 MG TABLET (UD) PO SCH ×2 (09:48→21:13)
[2018-04-05] MEDS: ATENOLOL 50 MG TABLET (FP) PO SCH (09:48)
[2018-04-05] MEDS: PRENATAL VITAMINS W/ FOLIC ACID TABLET (FP) PO SCH (09:48)
[2018-04-05] MEDS: LACTULOSE 20 GM/30 ML UDC (FOR ORAL USE ONLY) PO SCH ×2 (09:48→21:13)
[2018-04-05] MEDS: PANTOPRAZOLE 20 MG TABLET (FP) PO SCH (09:48)
[2018-04-05] MEDS: THIAMINE HCL 100 MG TABLET (FP) PO SCH (21:12)
[2018-04-06] MEDS: VITAMINS A AND D TOPICAL OINTMENT 60 GM TUBE TP SCH ×4 (02:52→18:08)
[2018-04-06] MEDS: PRENATAL VITAMINS W/ FOLIC ACID TABLET (FP) PO SCH (09:57)
[2018-04-06] MEDS: RIFAXIMIN 550 MG TABLET (UD) PO SCH ×2 (09:58→21:19)
[2018-04-06] MEDS: LACTULOSE 20 GM/30 ML UDC (FOR ORAL USE ONLY) PO SCH ×2 (09:58→21:19)
[2018-04-06] MEDS: PANTOPRAZOLE 20 MG TABLET (FP) PO SCH (09:58)
[2018-04-06] MEDS: ARTIFICIAL TEARS (POLYVINYL ALCOHOL) OPTH DROPS OU PRN (09:58)
[2018-04-06] MEDS: ATENOLOL 50 MG TABLET (FP) PO SCH (09:58)
[2018-04-06] MEDS: THIAMINE HCL 100 MG TABLET (FP) PO SCH (21:19)
[2018-04-07] MEDS: VITAMINS A AND D TOPICAL OINTMENT 60 GM TUBE TP SCH ×4 (00:10→17:12)
[2018-04-07] MEDS: ATENOLOL 50 MG TABLET (FP) PO SCH (09:59)
[2018-04-07] MEDS: LACTULOSE 20 GM/30 ML UDC (FOR ORAL USE ONLY) PO SCH ×2 (09:59→21:10)
[2018-04-07] MEDS: PRENATAL VITAMINS W/ FOLIC ACID TABLET (FP) PO SCH (09:59)
[2018-04-07] MEDS: PANTOPRAZOLE 20 MG TABLET (FP) PO SCH (09:59)
[2018-04-07] MEDS: RIFAXIMIN 550 MG TABLET (UD) PO SCH ×2 (09:59→22:16)
[2018-04-07] MEDS: THIAMINE HCL 100 MG TABLET (FP) PO SCH (21:10)
[2018-04-08] MEDS: VITAMINS A AND D TOPICAL OINTMENT 60 GM TUBE TP SCH ×5 (00:29→23:44)
[2018-04-08] MEDS: ATENOLOL 50 MG TABLET (FP) PO SCH (09:58)
[2018-04-08] MEDS: PRENATAL VITAMINS W/ FOLIC ACID TABLET (FP) PO SCH (09:58)
[2018-04-08] MEDS: LACTULOSE 20 GM/30 ML UDC (FOR ORAL USE ONLY) PO SCH ×2 (09:58→21:21)
[2018-04-08] MEDS: RIFAXIMIN 550 MG TABLET (UD) PO SCH ×2 (09:58→21:21)
[2018-04-08] MEDS: PANTOPRAZOLE 20 MG TABLET (FP) PO SCH (09:58)
[2018-04-08] MEDS: THIAMINE HCL 100 MG TABLET (FP) PO SCH (21:21)
[2018-04-09] MEDS: VITAMINS A AND D TOPICAL OINTMENT 60 GM TUBE TP SCH ×3 (06:39→18:37)
[2018-04-09] MEDS: ATENOLOL 50 MG TABLET (FP) PO SCH (09:51)
[2018-04-09] MEDS: PANTOPRAZOLE 20 MG TABLET (FP) PO SCH (09:51)
[2018-04-09] MEDS: PRENATAL VITAMINS W/ FOLIC ACID TABLET (FP) PO SCH (09:51)
[2018-04-09] MEDS: RIFAXIMIN 550 MG TABLET (UD) PO SCH ×2 (09:51→21:23)
[2018-04-09] MEDS: LACTULOSE 20 GM/30 ML UDC (FOR ORAL USE ONLY) PO SCH ×2 (09:51→21:23)
[2018-04-09] MEDS: THIAMINE HCL 100 MG TABLET (FP) PO SCH (21:23)
[2018-04-10] MEDS: VITAMINS A AND D TOPICAL OINTMENT 60 GM TUBE TP SCH ×4 (01:07→17:09)
[2018-04-10] MEDS: RIFAXIMIN 550 MG TABLET (UD) PO SCH ×2 (09:44→21:24)
[2018-04-10] MEDS: ATENOLOL 50 MG TABLET (FP) PO SCH (09:44)
[2018-04-10] MEDS: PRENATAL VITAMINS W/ FOLIC ACID TABLET (FP) PO SCH (09:44)
[2018-04-10] MEDS: PANTOPRAZOLE 20 MG TABLET (FP) PO SCH (09:44)
[2018-04-10] MEDS: LACTULOSE 20 GM/30 ML UDC (FOR ORAL USE ONLY) PO SCH ×2 (09:44→21:24)
[2018-04-10] MEDS: THIAMINE HCL 100 MG TABLET (FP) PO SCH (21:24)
[2018-04-11] MEDS: VITAMINS A AND D TOPICAL OINTMENT 60 GM TUBE TP SCH ×4 (03:33→17:33)
[2018-04-11] MEDS: RIFAXIMIN 550 MG TABLET (UD) PO SCH ×2 (10:17→21:14)
[2018-04-11] MEDS: LACTULOSE 20 GM/30 ML UDC (FOR ORAL USE ONLY) PO SCH ×2 (10:17→21:14)
[2018-04-11] MEDS: ATENOLOL 50 MG TABLET (FP) PO SCH (10:17)
[2018-04-11] MEDS: PANTOPRAZOLE 20 MG TABLET (FP) PO SCH (10:17)
[2018-04-11] MEDS: PRENATAL VITAMINS W/ FOLIC ACID TABLET (FP) PO SCH (10:18)
[2018-04-11] MEDS: THIAMINE HCL 100 MG TABLET (FP) PO SCH (21:14)
[2018-04-11] MEDS: TOLNAFTATE 1% CREAM 15 GM TUBE TP SCH (21:16)
[2018-04-12] MEDS: VITAMINS A AND D TOPICAL OINTMENT 60 GM TUBE TP SCH ×4 (03:04→17:43)
[2018-04-12] MEDS: PANTOPRAZOLE 20 MG TABLET (FP) PO SCH (09:46)
[2018-04-12] MEDS: LACTULOSE 20 GM/30 ML UDC (FOR ORAL USE ONLY) PO SCH ×2 (09:46→21:18)
[2018-04-12] MEDS: PRENATAL VITAMINS W/ FOLIC ACID TABLET (FP) PO SCH (09:46)
[2018-04-12] MEDS: RIFAXIMIN 550 MG TABLET (UD) PO SCH ×2 (09:46→21:18)
[2018-04-12] MEDS: ATENOLOL 50 MG TABLET (FP) PO SCH (09:46)
[2018-04-12] MEDS: TOLNAFTATE 1% CREAM 15 GM TUBE TP SCH ×2 (09:48→21:19)
--- NOTE | 2018-04-12 14:11 | PN ---
S Progress Note Note: Vital Signs Temperature 98.1 F 04/12/18 06:38 Pulse Rate 62 04/12/18 06:38 Respiratory Rate 18 04/12/18 06:38 Blood Pressure 113/70 04/12/18 06:38 O2 Sat by Pulse Oximetry (%) Patient c/o of upper back pain, denies changes in mobility or paresthesia . Patient Aox3 no distress no adventitious breath sounds skin intact no erythema full ROM, + upper mid thoracic back pain back pain Plan: lidocaine patch tp prn patient tentatively schedule to compete program 04/13/18. Patient to follow up with primary medical provider 1 -2 weeks post discharge, patient verbalizes understanding.
[2018-04-12] MEDS: LIDOCAINE 5% TOPICAL PATCH TP SCH (14:31)
[2018-04-12] MEDS: LIDOCAINE PATCH REMOVAL MC SCH (21:18)
[2018-04-12] MEDS: THIAMINE HCL 100 MG TABLET (FP) PO SCH (21:18)
[2018-04-13] MEDS: VITAMINS A AND D TOPICAL OINTMENT 60 GM TUBE TP SCH ×4 (04:13→17:10)
[2018-04-13] MEDS: PANTOPRAZOLE 20 MG TABLET (FP) PO SCH (09:46)
[2018-04-13] MEDS: LACTULOSE 20 GM/30 ML UDC (FOR ORAL USE ONLY) PO SCH ×2 (09:46→21:15)
[2018-04-13] MEDS: PRENATAL VITAMINS W/ FOLIC ACID TABLET (FP) PO SCH (09:46)
[2018-04-13] MEDS: RIFAXIMIN 550 MG TABLET (UD) PO SCH ×2 (09:46→21:15)
[2018-04-13] MEDS: LIDOCAINE 5% TOPICAL PATCH TP SCH (09:47)
[2018-04-13] MEDS: ATENOLOL 50 MG TABLET (FP) PO SCH (09:47)
[2018-04-13] MEDS: TOLNAFTATE 1% CREAM 15 GM TUBE TP SCH ×2 (09:48→21:15)
[2018-04-13] MEDS: THIAMINE HCL 100 MG TABLET (FP) PO SCH (21:15)
[2018-04-13] MEDS: LIDOCAINE PATCH REMOVAL MC SCH (21:15)
[2018-04-14] MEDS: VITAMINS A AND D TOPICAL OINTMENT 60 GM TUBE TP SCH ×4 (00:21→17:02)
[2018-04-14] MEDS: PRENATAL VITAMINS W/ FOLIC ACID TABLET (FP) PO SCH (10:05)
[2018-04-14] MEDS: LIDOCAINE 5% TOPICAL PATCH TP SCH (10:05)
[2018-04-14] MEDS: ATENOLOL 50 MG TABLET (FP) PO SCH (10:05)
[2018-04-14] MEDS: LACTULOSE 20 GM/30 ML UDC (FOR ORAL USE ONLY) PO SCH ×2 (10:05→21:56)
[2018-04-14] MEDS: RIFAXIMIN 550 MG TABLET (UD) PO SCH ×2 (10:05→21:56)
[2018-04-14] MEDS: PANTOPRAZOLE 20 MG TABLET (FP) PO SCH (10:05)
[2018-04-14] MEDS: TOLNAFTATE 1% CREAM 15 GM TUBE TP SCH ×2 (10:06→21:56)
[2018-04-14] MEDS: THIAMINE HCL 100 MG TABLET (FP) PO SCH (21:56)
[2018-04-14] MEDS: LIDOCAINE PATCH REMOVAL MC SCH (21:56)
[2018-04-15] MEDS: VITAMINS A AND D TOPICAL OINTMENT 60 GM TUBE TP SCH ×4 (01:01→17:04)
[2018-04-15] MEDS: PRENATAL VITAMINS W/ FOLIC ACID TABLET (FP) PO SCH (09:57)
[2018-04-15] MEDS: LACTULOSE 20 GM/30 ML UDC (FOR ORAL USE ONLY) PO SCH ×2 (09:57→21:31)
[2018-04-15] MEDS: ATENOLOL 50 MG TABLET (FP) PO SCH (09:57)
[2018-04-15] MEDS: PANTOPRAZOLE 20 MG TABLET (FP) PO SCH (09:57)
[2018-04-15] MEDS: LIDOCAINE 5% TOPICAL PATCH TP SCH (09:58)
[2018-04-15] MEDS: TOLNAFTATE 1% CREAM 15 GM TUBE TP SCH ×2 (09:58→21:31)
--- NOTE | 2018-04-15 10:47 | PN ---
S Progress Note Note: Vital Signs Temperature 99.0 F 04/15/18 07:01 Pulse Rate 63 04/15/18 07:01 Respiratory Rate 18 04/15/18 07:01 Blood Pressure 124/84 04/15/18 07:01 O2 Sat by Pulse Oximetry (%) med renewal xifaxan 550 mg BID med renewed continue to monitor
[2018-04-15] MEDS: RIFAXIMIN 550 MG TABLET (UD) PO SCH (21:31)
[2018-04-15] MEDS: THIAMINE HCL 100 MG TABLET (FP) PO SCH (21:31)
[2018-04-15] MEDS: LIDOCAINE PATCH REMOVAL MC SCH (21:32)
[2018-04-16] MEDS: VITAMINS A AND D TOPICAL OINTMENT 60 GM TUBE TP SCH ×3 (07:39→17:12)
[2018-04-16] MEDS: RIFAXIMIN 550 MG TABLET (UD) PO SCH ×2 (09:51→21:26)
[2018-04-16] MEDS: PANTOPRAZOLE 20 MG TABLET (FP) PO SCH (09:51)
[2018-04-16] MEDS: LIDOCAINE 5% TOPICAL PATCH TP SCH (09:51)
[2018-04-16] MEDS: ATENOLOL 50 MG TABLET (FP) PO SCH (09:51)
[2018-04-16] MEDS: LACTULOSE 20 GM/30 ML UDC (FOR ORAL USE ONLY) PO SCH ×2 (09:51→21:26)
[2018-04-16] MEDS: PRENATAL VITAMINS W/ FOLIC ACID TABLET (FP) PO SCH (09:51)
[2018-04-16] MEDS: TOLNAFTATE 1% CREAM 15 GM TUBE TP SCH ×2 (09:51→21:26)
[2018-04-16] MEDS: LIDOCAINE PATCH REMOVAL MC SCH (21:25)
[2018-04-16] MEDS: THIAMINE HCL 100 MG TABLET (FP) PO SCH (21:26)
[2018-04-17] MEDS: VITAMINS A AND D TOPICAL OINTMENT 60 GM TUBE TP SCH ×4 (06:53→17:09)
[2018-04-17] MEDS: RIFAXIMIN 550 MG TABLET (UD) PO SCH ×2 (10:11→21:24)
[2018-04-17] MEDS: ATENOLOL 50 MG TABLET (FP) PO SCH (10:11)
[2018-04-17] MEDS: LACTULOSE 20 GM/30 ML UDC (FOR ORAL USE ONLY) PO SCH ×2 (10:11→21:24)
[2018-04-17] MEDS: LIDOCAINE 5% TOPICAL PATCH TP SCH (10:12)
[2018-04-17] MEDS: TOLNAFTATE 1% CREAM 15 GM TUBE TP SCH ×2 (10:12→21:25)
[2018-04-17] MEDS: PRENATAL VITAMINS W/ FOLIC ACID TABLET (FP) PO SCH (10:12)
[2018-04-17] MEDS: PANTOPRAZOLE 20 MG TABLET (FP) PO SCH (10:12)
[2018-04-17] MEDS: THIAMINE HCL 100 MG TABLET (FP) PO SCH (21:24)
[2018-04-17] MEDS: LIDOCAINE PATCH REMOVAL MC SCH (23:46)
[2018-04-18] MEDS: VITAMINS A AND D TOPICAL OINTMENT 60 GM TUBE TP SCH ×4 (01:31→17:11)
[2018-04-18] MEDS: LIDOCAINE 5% TOPICAL PATCH TP SCH (10:13)
[2018-04-18] MEDS: PRENATAL VITAMINS W/ FOLIC ACID TABLET (FP) PO SCH (10:13)
[2018-04-18] MEDS: LACTULOSE 20 GM/30 ML UDC (FOR ORAL USE ONLY) PO SCH ×2 (10:13→21:23)
[2018-04-18] MEDS: RIFAXIMIN 550 MG TABLET (UD) PO SCH ×2 (10:13→21:23)
[2018-04-18] MEDS: PANTOPRAZOLE 20 MG TABLET (FP) PO SCH (10:14)
[2018-04-18] MEDS: ATENOLOL 50 MG TABLET (FP) PO SCH (10:14)
--- NOTE | 2018-04-18 10:36 | PN ---
Psychiatric Progress Note Vital Signs: Vital Signs Period Temp Pulse Resp BP Sys/Conde Pulse Ox Last 24 Hr 98.4 F 62 18-18 138/82 Date of Session: 04/18/18 Chief Complaint:: Discharge Note HPI: Patient addressing Alcohol Dependence comorbid with Posttraumatic Stress Disorder, Alcohol-Induced Mood Disorder and Alcohol-Induced Sleep Disorder ROS: HTN, GERD were medically managed Current Medications: Active Medications Generic Name Dose Route Start Last Admin Trade Name Freq PRN Reason Stop Dose Admin Al Hydroxide/Mg Hydroxide 30 ml 03/21/18 16:12 Mylanta Oral Suspension - PO Q6H PRN DYSPEPSIA Artificial Tears 1 drop 03/22/18 12:37 04/06/18 09:58 Artificial Tears OU 1 drop TID PRN Administration DRY EYES Atenolol 50 mg 03/22/18 10:00 04/18/18 10:14 Tenormin - PO 50 mg DAILY SARIKA Administration Eucalyptus/Menthol/Phenol/Sorbitol 1 each 03/21/18 16:12 Cepastat Lozenge - MM Q4H PRN SORE THROAT Guaifenesin 10 ml 03/21/18 16:12 Robitussin Dm - PO Q6H PRN COUGH Hydroxyzine Pamoate 50 mg 03/21/18 16:12 03/23/18 14:27 Vistaril - PO 50 mg Q4H PRN Administration AGITATION Ibuprofen 400 mg 03/21/18 16:12 Motrin - PO Q6H PRN Pain Level 4-6 Lactulose 20 gm 03/27/18 22:00 04/18/18 10:13 Cephulac (Oral Use) PO 20 gm BID SARIKA Administration Lidocaine 1 patch 04/12/18 13:45 04/18/18 10:13 Lidoderm Patch - TP 1 patch DAILY SARIKA Administration Loperamide HCl 4 mg 03/21/18 16:12 Imodium - PO Q6H PRN DIARRHEA Magnesium Citrate 300 ml 03/21/18 16:12 Citroma - PO Q48H PRN CONSTIPATION Magnesium Hydroxide 30 ml 03/21/18 16:12 Milk Of Magnesia - PO DAILY PRN CONSTIPATION Melatonin 5 mg 03/21/18 22:00 03/25/18 21:23 Melatonin PO 5 mg HS PRN Administration INSOMNIA Miscellaneous 1 each 04/12/18 22:00 04/17/18 23:46 Lidoderm Patch Removal MC 1 each DAILY@2200 SARIKA Administration Pantoprazole Sodium 20 mg 03/28/18 10:00 04/18/18 10:14 Protonix - PO 20 mg DAILY SARIKA Administration Multivit/Folic Acid/Iron 1 tab 03/22/18 10:00 04/18/18 10:13 Vitamins (Sjr) - PO 1 tab DAILY SARIKA Administration Pseudoephedrine/Triprolidine 1 combo 03/21/18 16:12 Actifed - PO TID PRN NASAL CONGESTION Rifaximin 550 mg 04/15/18 22:00 04/18/18 10:13 Xifaxan - PO 550 mg BID SARIKA Administration Thiamine HCl 100 mg 03/21/18 22:00 04/17/18 21:24 Vitamin B1 - PO 100 mg HS SARIKA Administration Tolnaftate 1 applic 04/11/18 22:00 04/17/18 21:25 Tinactin 1% Cream - TP Not Given BID SARIKA Vitamin A/Vitamin D 1 applic 03/31/18 12:00 04/18/18 06:51 Vitamin A & D Top Oint - TP Not Given Q6HPO SARIKA Current Side Effect: No Lab tests ordered: Yes Lab tests reviewed: Yes Provider note:: Patient will complete this program on . He has met his treatment goals and will continue to address his issues in [place] [facility]. Told health science writer that from his participation in this program, he has learned to reinforce the skills acquired in the past including "Will Power". He is stable for discharge on 04/19/18 Total face to face time:: 35 Mental Status Exam - Mental Status Exam Alert and Oriented to: Time, Place, Person Cognitive Function: Fair Patient Appearance: Well Groomed Mood: Hopeful, Euthymic Affect: Appropriate Patient Behavior: Cooperative Speech Pattern: Clear Voice Loudness: Normal Thought Process: Intact Thought Disorder: Not Present Hallucinations: Denies Suicidal Ideation: Denies Homicidal Ideation: Denies Insight/Judgement: Fair Sleep: Fair Appetite: Good Muscle strength/Tone: Normal Gait/Station: Normal Psychiatric Treatment Plan - Problem List (1) Alcohol dependence Current Visit: Yes (2) Alcohol-induced mood disorder Current Visit: Yes (3) Alcohol-induced sleep disorder Current Visit: No (4) PTSD (post-traumatic stress disorder) Current Visit: No (5) GERD (gastroesophageal reflux disease) Current Visit: No Qualifiers: Esophagitis presence: without esophagitis Qualified Code(s): K21.9 - Gastro -esophageal reflux disease without esophagitis (6) HTN (hypertension) Current Visit: No Qualifiers: Hypertension type: essential hypertension Qualified Code(s): I10 - Essential (primary) hypertension (7) Peripheral neuropathy Current Visit: No Qualifiers: Peripheral neuropathy type: polyneuropathy, alcohol-induced Qualified Code( s): G62.1 - Alcoholic polyneuropathy (8) Cirrhosis of liver Current Visit: No Qualifiers: Hepatic cirrhosis type: unspecified hepatic cirrhosis Ascites presence: unspecified Qualified Code(s): K74.60 - Unspecified cirrhosis of liver Initial treatment plan: Patient will be discharged on 04/19/18 and referred to [facility] for [place] [facility]
[2018-04-18] MEDS: TOLNAFTATE 1% CREAM 15 GM TUBE TP SCH ×2 (10:50→21:24)
[2018-04-18] MEDS: THIAMINE HCL 100 MG TABLET (FP) PO SCH (21:23)
[2018-04-18] MEDS: LIDOCAINE PATCH REMOVAL MC SCH (21:24)
[2018-04-19] MEDS: VITAMINS A AND D TOPICAL OINTMENT 60 GM TUBE TP SCH ×2 (02:16→06:45)
[2018-04-19 06:41] VITALS: BP 111/74; PULSE 67; TEMP 99
[2018-04-19] MEDS: RIFAXIMIN 550 MG TABLET (UD) PO SCH (10:01)
[2018-04-19] MEDS: PANTOPRAZOLE 20 MG TABLET (FP) PO SCH (10:01)
[2018-04-19] MEDS: ATENOLOL 50 MG TABLET (FP) PO SCH (10:01)
[2018-04-19] MEDS: PRENATAL VITAMINS W/ FOLIC ACID TABLET (FP) PO SCH (10:01)
[2018-04-19] MEDS: LACTULOSE 20 GM/30 ML UDC (FOR ORAL USE ONLY) PO SCH (10:01)
[2018-04-19] MEDS: LIDOCAINE 5% TOPICAL PATCH TP SCH (10:01)
[2018-04-19] MEDS: TOLNAFTATE 1% CREAM 15 GM TUBE TP SCH (10:02)
== END 2018-04-19 10:35 | disposition home or self-care (01) | DRG 772 ==
LOC: YASAS 14:43 → Y5N 14:45
PROVIDERS: ADMIT Psychiatry & Neurology Psychiatry; ATTEND Psychiatry & Neurology Psychiatry
PROC: HZ42ZZZ Group Counseling for Substance Abuse Treatment, Cognitive-Behavioral (ICD-10-PCS; principal; 2018-03-21)
DX: F10.24 Alcohol dependence with alcohol-induced mood disorder (principal); F10.282 Alcohol dependence with alcohol-induced sleep disorder; F43.10 Post-traumatic stress disorder, unspecified; I10 Essential (primary) hypertension; K21.9 Gastro-esophageal reflux disease without esophagitis; K74.60 Unspecified cirrhosis of liver; M54.6 Pain in thoracic spine; H04.129 Dry eye syndrome of unspecified lacrimal gland
CPT/HCPCS: 36415; 80053; 84132; 86803

== ENCOUNTER 2018-05-31 09:36 | Inpatient (IN) | payer OTHER ==
[2018-05-31 09:53] VITALS: BMI 28.0
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
[2018-05-31] MEDS ORDERED: MAGNESIUM HYDROX 2400MG/30ML ORAL SUSPENSION 30 ML CUP PO PRN (10:41)
[2018-05-31] MEDS ORDERED: ACETAMINOPHEN 325 MG TABLET (FP) PO PRN (10:41)
[2018-05-31] MEDS ORDERED: MAGNESIUM CITRATE 300 ML BOTTLE PO PRN (10:41)
[2018-05-31] MEDS ORDERED: LOPERAMIDE HCL 2 MG CAPSULE PO PRN (10:41)
[2018-05-31] MEDS ORDERED: MAG HYDROX/AL HYDROX/SIMETH 30 ML UNIT-DOSE CUP PO PRN (10:41)
[2018-05-31] MEDS ORDERED: hydrOXYzine PAMOATE 50 MG CAPSULE (FP) PO PRN (10:41)
[2018-05-31] MEDS ORDERED: P-EPHED 60MG/TRIPROLIDI 2.5MG TABLET PO PRN (10:41)
[2018-05-31] MEDS ORDERED: IBUPROFEN 400 MG TABLET (FP) PO PRN (10:41)
[2018-05-31] MEDS ORDERED: guaiFENesin/D-METHORPHAN HB 10 ML UNIT-DOSE CUPS PO PRN (10:41)
[2018-05-31] MEDS ORDERED: MENTHOL/PHENOL 1 EACH UD MM PRN (10:41)
[2018-05-31] MEDS: chlordiazePOXIDE HCL 25 MG CAPSULE PO PRN ×2 (12:07→19:31)
--- NOTE | 2018-05-31 15:15 | EKG ---
Test Reason : Blood Pressure : / mmHG Vent. Rate : 077 BPM Atrial Rate : 077 BPM P-R Int : 154 ms QRS Dur : 082 ms QT Int : 426 ms P-R-T Axes : 042 079 039 degrees QTc Int : 482 ms NORMAL SINUS RHYTHM PROLONGED QT ABNORMAL ECG WHEN COMPARED WITH ECG OF 18-MAR-2018 18:27, NO SIGNIFICANT CHANGE WAS FOUND Confirmed by PILAR ROMERO MD ([id number]) on 05/31/2018 3:14:51 PM Referred By: Confirmed By:PILAR ROMERO MD
[2018-05-31] MEDS: chlordiazePOXIDE HCL 25 MG CAPSULE PO SCH ×2 (17:02→22:06)
[2018-05-31 18:58] LABS: URINE APPEARANCE CLEAR; URINE BILIRUBIN NEGATIVE (<2.0 mg/dL); URINE COLOR DKYELLOW; URINE GLUCOSE (UA) NEGATIVE (NEGATIVE); URINE KETONE NEGATIVE (NEGATIVE); URINE LEUK ESTERASE NEGATIVE (NEGATIVE); URINE NITRITE NEGATIVE (NEGATIVE); URINE PROTEIN NEGATIVE (NEGATIVE); URINE UROBILINOGEN 4.0 E.U/dl mg/dL (0.2-1.0)
[2018-05-31 19:02] LABS: URINE MUCUS MODERATE
[2018-05-31] MEDS ORDERED: MELATONIN 5 MG TABLETS PO PRN (22:00)
[2018-05-31] MEDS: THIAMINE HCL 100 MG TABLET (FP) PO SCH (22:05)
[2018-05-31] MEDS: RIFAXIMIN 550 MG TABLET (UD) PO SCH (22:05)
[2018-06-01] MEDS: chlordiazePOXIDE HCL 25 MG CAPSULE PO SCH ×4 (05:21→22:06)
[2018-06-01] MEDS: chlordiazePOXIDE HCL 25 MG CAPSULE PO PRN (07:17)
[2018-06-01 10:52] LABS: HEMATOCRIT 42.1 % (35.4-49); HEMOGLOBIN 13.7 GM/dL (11.7-16.9); MCH 28.8 pg (25.7-33.7); MCHC 32.6 g/dl (32.0-35.9); MEAN CELL VOLUME 88.6 fl (80-96); MEAN PLT VOLUME 9.3 fl (7.5-11.1); PLATELET COUNT 76 K/MM3 (134-434); RBC 4.75 M/mm3 (4.00-5.60); RDW 14.3 % (11.9-15.9); WHITE BLOOD COUNT 3.4 K/mm3 (4.0-10.0)
[2018-06-01] MEDS ORDERED: ONDANSETRON *ODT* 4 MG TABLET SL PRN (10:57)
[2018-06-01] MEDS: RIFAXIMIN 550 MG TABLET (UD) PO SCH ×2 (11:00→22:05)
[2018-06-01] MEDS: NADOLOL 20 MG TABLET (FP) PO SCH (11:00)
[2018-06-01] MEDS: PRENATAL VITAMINS W/ FOLIC ACID TABLET (FP) PO SCH (11:00)
[2018-06-01 11:11] LABS: ALBUMIN 3.8 g/dl (3.4-5.0); ALK PHOS 132 U/L (45-117); ANION GAP 11 MMOL/L (8-16); BILIRUBIN,TOTAL 0.9 mg/dL (0.2-1); BLOOD UREA NITROGEN 11 mg/dL (7-18); CALCIUM 7.6 mg/dL (8.5-10.1); CHLORIDE 105 mmol/L (98-107); CO2 31 mmol/L (21-32); CREATININE 0.5 mg/dL (0.55-1.3); GLUCOSE,RANDOM 105 mg/dL (74-106); POTASSIUM 3.7 mmol/L (3.5-5.1); SGOT/AST 69 U/L (15-37); SGPT/ALT 39 U/L (13-61); SODIUM 147 mmol/L (136-145)
--- NOTE | 2018-06-01 13:47 | PN ---
S CIWA - CIWA Score Nausea/Vomitin-Mild Nausea/No Vomiting Muscle Tremors: 3 Anxiety: 3 Agitation: 3 Paroxysmal Sweats: 2 Orientation: 0-Oriented Tacttile Disturbances: 0-None Auditory Disturbances: 0-None Visual Disturbances: 0-None Headache: 0-None Present CIWA-Ar Total Score: 12 BHS Progress Note (SOAP) Subjective: PATIENT C/O MILD NAUSEA, SWEATING, SHAKES, ANXIETY AND RESTLESSNESS. Objective: 06/01/18 13:44 Laboratory Tests 05/31/18 05/31/18 06/01/18 12:15 15:51 06:00 WBC 3.4 L RBC 4.75 Hgb 13.7 Hct 42.1 MCV 88.6 MCH 28.8 MCHC 32.6 RDW 14.3 Plt Count 76 L MPV 9.3 Sodium Potassium Chloride Carbon Dioxide Anion Gap BUN Creatinine Creat Clearance w eGFR Random Glucose Calcium Total Bilirubin AST ALT Alkaline Phosphatase Ammonia 114.46 H Total Protein Albumin Urine Color Dkyellow Urine Appearance Clear Urine pH 5.0 D Ur Specific [place] 1.017 Urine Protein Negative Urine Glucose (UA) Negative Urine Ketones Negative Urine Blood 1+ H Urine Nitrite Negative Urine Bilirubin Negative Urine Urobilinogen 4.0 e.u/dl Ur Leukocyte Esterase Negative Urine WBC (Auto) 1 Urine RBC (Auto) 1 Urine Mucus Moderate RPR Titer 06/01/18 06/01/18 06:00 06:00 WBC RBC Hgb Hct MCV MCH MCHC RDW Plt Count MPV Sodium 147 H Potassium 3.7 Chloride 105 Carbon Dioxide 31 Anion Gap 11 BUN 11 Creatinine 0.5 L Creat Clearance w eGFR > 60 Random Glucose 105 Calcium 7.6 L Total Bilirubin 0.9 AST 69 H ALT 39 Alkaline Phosphatase 132 H Ammonia Total Protein 8.0 Albumin 3.8 Urine Color Urine Appearance Urine pH Ur Specific [place] Urine Protein Urine Glucose (UA) Urine Ketones Urine Blood Urine Nitrite Urine Bilirubin Urine Urobilinogen Ur Leukocyte Esterase Urine WBC (Auto) Urine RBC (Auto) Urine Mucus RPR Titer Nonreactive SKIN WARM AND MOIST CAR S1S2 RESP CTA BL EXT +TREMORS, FULL ROM ALERT AND ORIENTED Assessment: 06/01/18 13:45 WITHDRAWAL SX ELEVATED AMMONIA LEVEL Plan: CONTINUE DETOX ORDERED ENCOURAGE ORAL FLUIDS LACTULOSE 20G TID REPEAT AMMONIA LEVEL IN AM CONTINUE TO MONITOR CLINICALLY
[2018-06-01] MEDS: LACTULOSE 20 GM/30 ML UDC (FOR ORAL USE ONLY) PO SCH ×2 (14:21→22:05)
[2018-06-01] MEDS: THIAMINE HCL 100 MG TABLET (FP) PO SCH (22:05)
[2018-06-02] MEDS: LACTULOSE 20 GM/30 ML UDC (FOR ORAL USE ONLY) PO SCH ×3 (05:42→22:07)
[2018-06-02] MEDS: chlordiazePOXIDE HCL 25 MG CAPSULE PO SCH ×2 (05:42→10:32)
[2018-06-02] MEDS: PRENATAL VITAMINS W/ FOLIC ACID TABLET (FP) PO SCH (10:30)
[2018-06-02] MEDS: RIFAXIMIN 550 MG TABLET (UD) PO SCH ×2 (10:31→22:07)
[2018-06-02] MEDS: NADOLOL 20 MG TABLET (FP) PO SCH (10:31)
--- NOTE | 2018-06-02 16:00 | PN ---
[facility] CIWA - CIWA Score Nausea/Vomitin Muscle Tremors: 3 Anxiety: 3 Agitation: 3 Paroxysmal Sweats: 3 Orientation: 0-Oriented Tacttile Disturbances: 0-None Auditory Disturbances: 0-None Visual Disturbances: 0-None Headache: 0-None Present CIWA-Ar Total Score: 14 S Progress Note (SOAP) Subjective: Stomach cramps, lightheaded, interrupted sleep Objective: 06/02/18 15:54 Last Vital Signs Temp Pulse Resp BP Pulse Ox 96.7 F L 78 18 136/89 06/02/18 13:46 06/02/18 13:46 06/02/18 13:46 06/02/18 13:46 Laboratory Tests 05/31/18 05/31/18 06/01/18 12:15 15:51 06:00 WBC 3.4 L RBC 4.75 Hgb 13.7 Hct 42.1 MCV 88.6 MCH 28.8 MCHC 32.6 RDW 14.3 Plt Count 76 L MPV 9.3 Sodium Potassium Chloride Carbon Dioxide Anion Gap BUN Creatinine Creat Clearance w eGFR Random Glucose Calcium Total Bilirubin AST ALT Alkaline Phosphatase Ammonia 114.46 H Total Protein Albumin Urine Color Dkyellow Urine Appearance Clear Urine pH 5.0 D Ur Specific [place] 1.017 Urine Protein Negative Urine Glucose (UA) Negative Urine Ketones Negative Urine Blood 1+ H Urine Nitrite Negative Urine Bilirubin Negative Urine Urobilinogen 4.0 e.u/dl Ur Leukocyte Esterase Negative Urine WBC (Auto) 1 Urine RBC (Auto) 1 Urine Mucus Moderate RPR Titer 06/01/18 06/01/18 06/02/18 06:00 06:00 07:00 WBC RBC Hgb Hct MCV MCH MCHC RDW Plt Count MPV Sodium 147 H Potassium 3.7 Chloride 105 Carbon Dioxide 31 Anion Gap 11 BUN 11 Creatinine 0.5 L Creat Clearance w eGFR > 60 Random Glucose 105 Calcium 7.6 L Total Bilirubin 0.9 AST 69 H ALT 39 Alkaline Phosphatase 132 H Ammonia 97.89 H Total Protein 8.0 Albumin 3.8 Urine Color Urine Appearance Urine pH Ur Specific [place] Urine Protein Urine Glucose (UA) Urine Ketones Urine Blood Urine Nitrite Urine Bilirubin Urine Urobilinogen Ur Leukocyte Esterase Urine WBC (Auto) Urine RBC (Auto) Urine Mucus RPR Titer Nonreactive Labs reviewed: ammonia level trending downward, abnormal UA, Na 147, plt 76 Assessment: 06/02/18 15:57 Withdrawal symptoms Noted with hyperammonemia, hypernatremia, abnormal UA and thrombocytopenia Plan: Continue detox Hyperammonemia: trending downwards, continue lactulose Hypernatremia: repeat serum sodium Abnormal UA: encouraged PO water intake, repeat UA Thrombocytopenia: follow up with PCP for monitoring
[2018-06-02] MEDS: chlordiazePOXIDE 5 MG CAPSULE PO SCH ×2 (17:20→22:07)
[2018-06-02] MEDS: THIAMINE HCL 100 MG TABLET (FP) PO SCH (22:07)
[2018-06-03] MEDS: chlordiazePOXIDE 5 MG CAPSULE PO SCH ×2 (05:45→10:29)
[2018-06-03] MEDS: LACTULOSE 20 GM/30 ML UDC (FOR ORAL USE ONLY) PO SCH ×3 (06:08→22:09)
[2018-06-03] MEDS: PRENATAL VITAMINS W/ FOLIC ACID TABLET (FP) PO SCH (10:29)
[2018-06-03] MEDS: NADOLOL 20 MG TABLET (FP) PO SCH (10:30)
[2018-06-03] MEDS: RIFAXIMIN 550 MG TABLET (UD) PO SCH ×2 (10:30→22:08)
[2018-06-03] MEDS ORDERED: TETRAHYDROZOLINE HCL EYE DROPS OU PRN (10:42)
--- NOTE | 2018-06-03 10:46 | PN ---
[facility] Progress Note Note: Vital Signs Temperature 97.6 F 06/03/18 09:54 Pulse Rate 77 06/03/18 09:54 Respiratory Rate 20 06/03/18 09:54 Blood Pressure 110/70 06/03/18 09:54 O2 Sat by Pulse Oximetry (%) Laboratory Last Values WBC 3.4 K/mm3 (4.0-10.0) L 06/01/18 06:00 RBC 4.75 M/mm3 (4.00-5.60) 06/01/18 06:00 Hgb 13.7 GM/dL (11.7-16.9) 06/01/18 06:00 Hct 42.1 % (35.4-49) 06/01/18 06:00 MCV 88.6 fl (80-96) 06/01/18 06:00 MCH 28.8 pg (25.7-33.7) 06/01/18 06:00 MCHC 32.6 g/dl (32.0-35.9) 06/01/18 06:00 RDW 14.3 % (11.9-15.9) 06/01/18 06:00 Plt Count 76 K/MM3 (134-434) L 06/01/18 06:00 MPV 9.3 fl (7.5-11.1) 06/01/18 06:00 Sodium 142 mmol/L (136-145) 06/03/18 08:00 Potassium 3.7 mmol/L (3.5-5.1) 06/01/18 06:00 Chloride 105 mmol/L (98-107) 06/01/18 06:00 Carbon Dioxide 31 mmol/L (21-32) 06/01/18 06:00 Anion Gap 11 MMOL/L (8-16) 06/01/18 06:00 BUN 11 mg/dL (7-18) 06/01/18 06:00 Creatinine 0.5 mg/dL (0.55-1.3) L 06/01/18 06:00 Creat Clearance w eGFR > 60 (>60) 06/01/18 06:00 Random Glucose 105 mg/dL (74-106) 06/01/18 06:00 Calcium 7.6 mg/dL (8.5-10.1) L 06/01/18 06:00 Total Bilirubin 0.9 mg/dL (0.2-1) 06/01/18 06:00 AST 69 U/L (15-37) H 06/01/18 06:00 ALT 39 U/L (13-61) 06/01/18 06:00 Alkaline Phosphatase 132 U/L (45-117) H 06/01/18 06:00 Ammonia 97.89 umol/L (11-32) H 06/02/18 07:00 Total Protein 8.0 g/dl (6.4-8.2) 06/01/18 06:00 Albumin 3.8 g/dl (3.4-5.0) 06/01/18 06:00 Urine Color Dkyellow 05/31/18 15:51 Urine Appearance Clear 05/31/18 15:51 Urine pH 5.0 (5.0-8.0) D 05/31/18 15:51 Ur Specific [place] 1.017 (1.010-1.035) 05/31/18 15:51 Urine Protein Negative (NEGATIVE) 05/31/18 15:51 Urine Glucose (UA) Negative (NEGATIVE) 05/31/18 15:51 Urine Ketones Negative (NEGATIVE) 05/31/18 15:51 Urine Blood 1+ (NEGATIVE) H 05/31/18 15:51 Urine Nitrite Negative (NEGATIVE) 05/31/18 15:51 Urine Bilirubin Negative (<2.0 mg/dL) 05/31/18 15:51 Urine Urobilinogen 4.0 e.u/dl mg/dL (0.2-1.0) 05/31/18 15:51 Ur Leukocyte Esterase Negative (NEGATIVE) 05/31/18 15:51 Urine WBC (Auto) 1 /hpf (3-5) 05/31/18 15:51 Urine RBC (Auto) 1 /hpf (0-3) 05/31/18 15:51 Urine Mucus Moderate 05/31/18 15:51 RPR Titer Nonreactive (NONREACTIVE) 06/01/18 06:00 c/o anxious , interrupted sleep, body aches Aox3 no distress no adventitious breath sounds full ROM ambulating in the unit withdrawal sx increase fluids continue lactulose continue detox continue to monitor reports small cancerous liver mass, reports will follow with chemical engineer. Patient with chemical engineer to follow 1 -2 weeks daphne discharge.
[2018-06-03] MEDS: chlordiazePOXIDE HCL 10 MG CAPSULE PO SCH ×2 (17:29→22:08)
[2018-06-03] MEDS: THIAMINE HCL 100 MG TABLET (FP) PO SCH (22:08)
[2018-06-04] MEDS: chlordiazePOXIDE HCL 10 MG CAPSULE PO SCH ×2 (05:30→10:02)
[2018-06-04] MEDS: LACTULOSE 20 GM/30 ML UDC (FOR ORAL USE ONLY) PO SCH ×2 (05:32→15:06)
[2018-06-04] MEDS: PRENATAL VITAMINS W/ FOLIC ACID TABLET (FP) PO SCH (10:01)
[2018-06-04] MEDS: RIFAXIMIN 550 MG TABLET (UD) PO SCH (10:01)
[2018-06-04] MEDS: NADOLOL 20 MG TABLET (FP) PO SCH (10:01)
[2018-06-04 13:34] LABS: URINE APPEARANCE CLEAR; URINE BILIRUBIN NEGATIVE (<2.0 mg/dL); URINE COLOR AMBER; URINE GLUCOSE (UA) NEGATIVE (NEGATIVE); URINE KETONE NEGATIVE (NEGATIVE); URINE LEUK ESTERASE NEGATIVE (NEGATIVE); URINE NITRITE NEGATIVE (NEGATIVE); URINE PROTEIN NEGATIVE (NEGATIVE); URINE UROBILINOGEN NEGATIVE mg/dL (0.2-1.0)
[2018-06-04 14:07] VITALS: BP 134/82; PULSE 85; TEMP 98
--- NOTE | 2018-06-04 14:16 | DS ---
[facility] Detox Discharge Summary Admission Date: 05/31/18 Discharge Date: 06/04/18 - History Present History: Alcohol Dependence Additional Comments: Patient reported small cancer growth on his liver that is not treatable at this time. As per patient, he was told by his liver doctor that he cannot have surgery because his platelets are too low and that there is no treatment at this time. Patient made aware of his ammonia level results decreasing and that Rx for lactulose will be sent to his pharmacy for him to continue taking. Patient also made aware of microscopic hematuria and was instructed to see his PCP within 1 week for further evaluation. Patient verbalized understanding. Pertinent Past History: GERD HTN Cirrhosis of liver Peripheral neuropathy Alcohol dependence - Physical Exam Results Vital Signs: Vital Signs Temperature 98.0 F 06/04/18 14:07 Pulse Rate 85 06/04/18 14:07 Respiratory Rate 18 06/04/18 14:07 Blood Pressure 134/82 06/04/18 14:07 O2 Sat by Pulse Oximetry (%) Pertinent Admission Physical Exam Findings: Withdrawal symptoms Laboratory Tests 05/31/18 05/31/18 06/01/18 12:15 15:51 06:00 WBC 3.4 L RBC 4.75 Hgb 13.7 Hct 42.1 MCV 88.6 MCH 28.8 MCHC 32.6 RDW 14.3 Plt Count 76 L MPV 9.3 Sodium Potassium Chloride Carbon Dioxide Anion Gap BUN Creatinine Creat Clearance w eGFR Random Glucose Calcium Total Bilirubin AST ALT Alkaline Phosphatase Ammonia 114.46 H Total Protein Albumin Urine Color Dkyellow Urine Appearance Clear Urine pH 5.0 D Ur Specific [place] 1.017 Urine Protein Negative Urine Glucose (UA) Negative Urine Ketones Negative Urine Blood 1+ H Urine Nitrite Negative Urine Bilirubin Negative Urine Urobilinogen 4.0 e.u/dl Ur Leukocyte Esterase Negative Urine WBC (Auto) 1 Urine RBC (Auto) 1 Urine Mucus Moderate RPR Titer 06/01/18 06/01/18 06/02/18 06:00 06:00 07:00 WBC RBC Hgb Hct MCV MCH MCHC RDW Plt Count MPV Sodium 147 H Potassium 3.7 Chloride 105 Carbon Dioxide 31 Anion Gap 11 BUN 11 Creatinine 0.5 L Creat Clearance w eGFR > 60 Random Glucose 105 Calcium 7.6 L Total Bilirubin 0.9 AST 69 H ALT 39 Alkaline Phosphatase 132 H Ammonia 97.89 H Total Protein 8.0 Albumin 3.8 Urine Color Urine Appearance Urine pH Ur Specific [place] Urine Protein Urine Glucose (UA) Urine Ketones Urine Blood Urine Nitrite Urine Bilirubin Urine Urobilinogen Ur Leukocyte Esterase Urine WBC (Auto) Urine RBC (Auto) Urine Mucus RPR Titer Nonreactive 06/03/18 06/04/18 08:00 08:00 WBC RBC Hgb Hct MCV MCH MCHC RDW Plt Count MPV Sodium 142 Potassium Chloride Carbon Dioxide Anion Gap BUN Creatinine Creat Clearance w eGFR Random Glucose Calcium Total Bilirubin AST ALT Alkaline Phosphatase Ammonia 82.65 H Total Protein Albumin Urine Color Urine Appearance Urine pH Ur Specific [place] Urine Protein Urine Glucose (UA) Urine Ketones Urine Blood Urine Nitrite Urine Bilirubin Urine Urobilinogen Ur Leukocyte Esterase Urine WBC (Auto) Urine RBC (Auto) Urine Mucus RPR Titer Labs reviewed: ammonia level 82.65 (was 142) trending downwards, continue lactulose 20gm PO TID; UA shows 1+ blood, encouraged PO water intake. Instructed to see his PCP within 1 week for further evaluation of abnormal lab results. - Treatment Hospital Course: Detox Protocol Followed, Detoxed Safely, Responded well, Discharged Condition Good - Medication Discharge Medications: Ambulatory Orders Rifaximin [Xifaxan -] 550 mg PO BID 30 Days #60 tablet 04/18/18 Nadolol [Corgard -] 40 mg PO DAILY 05/31/18 Lactulose (Oral Use) [Cephulac -] 20 gm PO TID 7 Days #1 bottle 06/04/18 - Diagnosis (1) Hyperammonemia Current Visit: Yes Status: Acute (2) Hypernatremia Current Visit: Yes Status: Resolved (3) Abnormal finding on urinalysis Current Visit: Yes Status: Acute (4) Thrombocytopenia Current Visit: Yes Status: Acute (5) Alcohol dependence with uncomplicated withdrawal Current Visit: Yes Status: Acute (6) Cirrhosis of liver Current Visit: Yes Status: Chronic Qualifiers: Hepatic cirrhosis type: unspecified hepatic cirrhosis Ascites presence: unspecified Qualified Code(s): K74.60 - Unspecified cirrhosis of liver (7) GERD (gastroesophageal reflux disease) Current Visit: Yes Status: Chronic Qualifiers: Esophagitis presence: without esophagitis Qualified Code(s): K21.9 - Gastro -esophageal reflux disease without esophagitis (8) HTN (hypertension) Current Visit: Yes Status: Chronic Qualifiers: Hypertension type: essential hypertension Qualified Code(s): I10 - Essential (primary) hypertension (9) Peripheral neuropathy Current Visit: Yes Status: Chronic Qualifiers: Peripheral neuropathy type: polyneuropathy, alcohol-induced Qualified Code( s): G62.1 - Alcoholic polyneuropathy (10) Microscopic hematuria Current Visit: Yes Status: Acute - AMA Did Patient Leave Against Medical Advice: No (F/U with your PCP within 1 week)
== END 2018-06-04 14:35 | disposition home or self-care (01) | DRG 775 ==
LOC: YASAS 09:36 → Y3N 11:13
PROC: HZ2ZZZZ Detoxification Services for Substance Abuse Treatment (ICD-10-PCS; principal; 2018-05-31)
DX: F10.230 Alcohol dependence with withdrawal, uncomplicated (principal); I10 Essential (primary) hypertension; D69.6 Thrombocytopenia, unspecified; G62.1 Alcoholic polyneuropathy; K21.9 Gastro-esophageal reflux disease without esophagitis; E72.20 Disorder of urea cycle metabolism, unspecified; E87.0 Hyperosmolality and hypernatremia; K74.60 Unspecified cirrhosis of liver; R31.29 Other microscopic hematuria; H04.129 Dry eye syndrome of unspecified lacrimal gland; Z91.041 Radiographic dye allergy status
CPT/HCPCS: 36415; 80053; 81003; 81015; 82140; 84295; 85027; 86593; 93005; 93010; Q0162

== ENCOUNTER 2020-07-08 17:25 | Inpatient (IN) | payer OTHER ==
[2020-07-08 19:08] VITALS: BMI 28.1
[2020-07-08] MEDS ORDERED: BISMUTH SUBSALICYLATE 524 MG/30 ML UD PO PRN (19:44)
[2020-07-08] MEDS ORDERED: MAG HYDROX/AL HYDROX/SIMETH 30 ML UNIT-DOSE CUP PO PRN (19:44)
[2020-07-08] MEDS ORDERED: MAGNESIUM HYDROX 2400MG/30ML ORAL SUSPENSION 30 ML CUP PO PRN (19:44)
[2020-07-08] MEDS ORDERED: IBUPROFEN 400 MG TABLET (FP) PO PRN (19:44)
[2020-07-08] MEDS ORDERED: ONDANSETRON *ODT* 4 MG TABLET SL PRN (19:44)
[2020-07-08] MEDS ORDERED: MENTHOL/PHENOL 1 EACH UD MM PRN (19:44)
[2020-07-08] MEDS ORDERED: ACETAMINOPHEN 325 MG TABLET (FP) PO PRN ×2 (19:44)
[2020-07-08] MEDS ORDERED: METHOCARBAMOL 500 MG TABLET PO PRN (19:44)
[2020-07-08] MEDS ORDERED: MAGNESIUM CITRATE 300 ML BOTTLE PO PRN (19:44)
[2020-07-08] MEDS ORDERED: chlordiazePOXIDE HCL 25 MG CAPSULE PO PRN (19:47)
[2020-07-08] MEDS: THIAMINE HCL 100 MG TABLET (FP) PO SCH (22:16)
[2020-07-08] MEDS: MELATONIN 5 MG TABLETS PO PRN (22:16)
[2020-07-08] MEDS: chlordiazePOXIDE HCL 25 MG CAPSULE PO SCH (22:16)
[2020-07-08] MEDS: hydrOXYzine PAMOATE 25 MG CAPSULE (FP) PO PRN (22:16)
[2020-07-09] MEDS: chlordiazePOXIDE HCL 25 MG CAPSULE PO SCH ×4 (05:14→22:15)
[2020-07-09] MEDS ORDERED: POTASSIUM CHLORIDE ORAL LIQUID 20 MEQ/15 ML PO ONE (10:16)
[2020-07-09] MEDS: PRENATAL VITAMINS W/ FOLIC ACID TABLET (FP) PO SCH (10:20)
[2020-07-09 10:21] LABS: HEMATOCRIT 37.5 % (35.4-49); HEMOGLOBIN 12.5 GM/dL (11.7-16.9); MCH 31.3 pg (25.7-33.7); MCHC 33.5 g/dl (32.0-35.9); MEAN CELL VOLUME 93.4 fl (80-96); MEAN PLT VOLUME 9.6 fl (7.5-11.1); PLATELET COUNT 52 K/MM3 (134-434); RBC 4.01 M/mm3 (4.00-5.60); RDW 16.3 % (11.9-15.9); WHITE BLOOD COUNT 2.7 K/mm3 (4.0-10.0)
[2020-07-09 10:46] LABS: BLOOD UREA NITROGEN 4.4 mg/dL (7-18); CALCIUM 7.8 mg/dL (8.5-10.1)
[2020-07-09 10:47] LABS: ALBUMIN 2.6 g/dl (3.4-5.0)
[2020-07-09 10:50] LABS: CREATININE 0.4 mg/dL (0.55-1.3)
[2020-07-09 10:52] LABS: BILIRUBIN,TOTAL 1.5 mg/dL (0.2-1); TOT PROT 7.4 g/dl (6.4-8.2)
[2020-07-09] MEDS: amLODIPine BESYLATE 5 MG TABLET (FP) PO SCH (12:46)
[2020-07-09] MEDS: MELATONIN 5 MG TABLETS PO PRN (22:15)
[2020-07-09] MEDS: THIAMINE HCL 100 MG TABLET (FP) PO SCH (22:15)
[2020-07-09] MEDS: POTASSIUM CHLORIDE ORAL LIQUID 20 MEQ/15 ML PO SCH (22:16)
[2020-07-10] MEDS: chlordiazePOXIDE HCL 25 MG CAPSULE PO SCH ×4 (06:16→22:29)
[2020-07-10] MEDS: amLODIPine BESYLATE 5 MG TABLET (FP) PO SCH (10:11)
[2020-07-10] MEDS: PRENATAL VITAMINS W/ FOLIC ACID TABLET (FP) PO SCH (10:11)
[2020-07-10] MEDS: POTASSIUM CHLORIDE ORAL LIQUID 20 MEQ/15 ML PO SCH (10:11)
[2020-07-10 10:30] LABS: HEMATOCRIT 41.7 % (35.4-49); HEMOGLOBIN 14.2 GM/dL (11.7-16.9); MCH 31.9 pg (25.7-33.7); MEAN CELL VOLUME 93.9 fl (80-96); MEAN PLT VOLUME 10.1 fl (7.5-11.1); PLATELET COUNT 48 K/MM3 (134-434); RBC 4.44 M/mm3 (4.00-5.60); WHITE BLOOD COUNT 3.4 K/mm3 (4.0-10.0)
[2020-07-10 10:32] LABS: POTASSIUM 3.5 mmol/L (3.5-5.1)
[2020-07-10 10:35] LABS: INR 1.41 (0.83-1.09); PROTHROMBIN TIME (PATIENT) 17.2 SEC (9.7-13.0)
[2020-07-10 10:43] LABS: ALBUMIN 3.2 g/dl (3.4-5.0)
[2020-07-10 10:44] LABS: BLOOD UREA NITROGEN 5.4 mg/dL (7-18); CALCIUM 8.7 mg/dL (8.5-10.1)
[2020-07-10 10:47] LABS: CREATININE 0.6 mg/dL (0.55-1.3)
[2020-07-10 10:48] LABS: BILIRUBIN,TOTAL 2.9 mg/dL (0.2-1); TOT PROT 8.5 g/dl (6.4-8.2)
[2020-07-10] MEDS: LACTULOSE 20 GM/30 ML UDC (FOR ORAL USE ONLY) PO SCH ×2 (14:45→22:31)
[2020-07-10] MEDS: MELATONIN 5 MG TABLETS PO PRN (22:29)
[2020-07-10] MEDS: THIAMINE HCL 100 MG TABLET (FP) PO SCH (22:29)
[2020-07-11] MEDS ORDERED: chlordiazePOXIDE HCL 10 MG CAPSULE PO PRN
[2020-07-11] MEDS: chlordiazePOXIDE HCL 10 MG CAPSULE PO SCH ×4 (05:42→22:11)
[2020-07-11] MEDS: LACTULOSE 20 GM/30 ML UDC (FOR ORAL USE ONLY) PO SCH ×4 (05:42→22:11)
[2020-07-11] MEDS: amLODIPine BESYLATE 5 MG TABLET (FP) PO SCH (10:16)
[2020-07-11] MEDS: PRENATAL VITAMINS W/ FOLIC ACID TABLET (FP) PO SCH (10:17)
[2020-07-11 10:34] LABS: POTASSIUM 3.5 mmol/L (3.5-5.1)
[2020-07-11 10:36] LABS: CALCIUM 9.2 mg/dL (8.5-10.1)
[2020-07-11 10:37] LABS: BLOOD UREA NITROGEN 12.1 mg/dL (7-18); HEMATOCRIT 44.8 % (35.4-49); HEMOGLOBIN 15.2 GM/dL (11.7-16.9); MCH 31.8 pg (25.7-33.7); MCHC 33.8 g/dl (32.0-35.9); MEAN CELL VOLUME 94.1 fl (80-96); MEAN PLT VOLUME 10.6 fl (7.5-11.1); PLATELET COUNT 61 K/MM3 (134-434); RBC 4.76 M/mm3 (4.00-5.60); RDW 16.4 % (11.9-15.9); WHITE BLOOD COUNT 4.6 K/mm3 (4.0-10.0)
[2020-07-11 10:40] LABS: CREATININE 0.7 mg/dL (0.55-1.3)
[2020-07-11 10:42] LABS: BILIRUBIN,TOTAL 2.2 mg/dL (0.2-1); TOT PROT 8.3 g/dl (6.4-8.2)
[2020-07-11] MEDS: THIAMINE HCL 100 MG TABLET (FP) PO SCH (22:11)
[2020-07-11] MEDS: MELATONIN 5 MG TABLETS PO PRN (22:11)
[2020-07-12] MEDS: chlordiazePOXIDE HCL 10 MG CAPSULE PO SCH ×2 (05:42→17:38)
[2020-07-12 09:29] LABS: HEMATOCRIT 43.2 % (35.4-49); HEMOGLOBIN 14.7 GM/dL (11.7-16.9); MCH 32.1 pg (25.7-33.7); MCHC 33.9 g/dl (32.0-35.9); MEAN CELL VOLUME 94.7 fl (80-96); MEAN PLT VOLUME 10.4 fl (7.5-11.1); PLATELET COUNT 82 K/MM3 (134-434); RBC 4.57 M/mm3 (4.00-5.60); RDW 16.3 % (11.9-15.9); WHITE BLOOD COUNT 6.6 K/mm3 (4.0-10.0)
[2020-07-12 09:34] LABS: INR 1.44 (0.83-1.09); PROTHROMBIN TIME (PATIENT) 17.5 SEC (9.7-13.0)
[2020-07-12 09:44] LABS: POTASSIUM 3.7 mmol/L (3.5-5.1)
[2020-07-12] MEDS: amLODIPine BESYLATE 5 MG TABLET (FP) PO SCH (10:13)
[2020-07-12] MEDS: PRENATAL VITAMINS W/ FOLIC ACID TABLET (FP) PO SCH (10:13)
[2020-07-12] MEDS: LACTULOSE 20 GM/30 ML UDC (FOR ORAL USE ONLY) PO SCH ×4 (10:14→21:51)
[2020-07-12 10:15] LABS: ALBUMIN 3.2 g/dl (3.4-5.0); BLOOD UREA NITROGEN 16.1 mg/dL (7-18); CALCIUM 9.3 mg/dL (8.5-10.1)
[2020-07-12 10:18] LABS: CREATININE 0.7 mg/dL (0.55-1.3)
[2020-07-12 10:20] LABS: BILIRUBIN,TOTAL 1.9 mg/dL (0.2-1); TOT PROT 8.6 g/dl (6.4-8.2)
[2020-07-12] MEDS ORDERED: MASKS NR ONE (17:42)
[2020-07-12] MEDS: THIAMINE HCL 100 MG TABLET (FP) PO SCH (21:51)
[2020-07-13] MEDS ORDERED: chlordiazePOXIDE HCL 10 MG CAPSULE PO ONE (05:00)
[2020-07-13] MEDS: PRENATAL VITAMINS W/ FOLIC ACID TABLET (FP) PO SCH (10:07)
[2020-07-13] MEDS: amLODIPine BESYLATE 5 MG TABLET (FP) PO SCH (10:07)
[2020-07-13] MEDS: LACTULOSE 20 GM/30 ML UDC (FOR ORAL USE ONLY) PO SCH ×4 (10:33→22:44)
[2020-07-13] MEDS: MELATONIN 5 MG TABLETS PO PRN (22:43)
[2020-07-13] MEDS: THIAMINE HCL 100 MG TABLET (FP) PO SCH (22:44)
[2020-07-13] MEDS: hydrOXYzine PAMOATE 25 MG CAPSULE (FP) PO PRN (22:44)
[2020-07-14 09:26] VITALS: BP 121/88; PULSE 104; TEMP 98.1
[2020-07-14] MEDS: PRENATAL VITAMINS W/ FOLIC ACID TABLET (FP) PO SCH (10:32)
[2020-07-14] MEDS: amLODIPine BESYLATE 5 MG TABLET (FP) PO SCH (10:32)
[2020-07-14] MEDS: LACTULOSE 20 GM/30 ML UDC (FOR ORAL USE ONLY) PO SCH (10:32)
[2020-07-14 10:41] LABS: INR 1.31 (0.83-1.09)
== END 2020-07-14 11:10 | disposition home or self-care (01) | DRG 775 ==
LOC: YASAS 17:25 → Y3N 20:16
PROVIDERS: ADMIT Allergy & Immunology; ATTEND Allergy & Immunology
PROC: HZ2ZZZZ Detoxification Services for Substance Abuse Treatment (ICD-10-PCS; principal; 2020-07-08)
DX: F10.230 Alcohol dependence with withdrawal, uncomplicated (principal); F10.220 Alcohol dependence with intoxication, uncomplicated; F19.24 Other psychoactive substance dependence with psychoactive substance-induced mood disorder; I10 Essential (primary) hypertension; E72.20 Disorder of urea cycle metabolism, unspecified; K74.60 Unspecified cirrhosis of liver; R79.1 Abnormal coagulation profile; Z91.041 Radiographic dye allergy status; Z87.891 Personal history of nicotine dependence
CPT/HCPCS: 36415; 80053; 82140; 82947; 85027; 85610; 86780; C9803; U0003